=== PATIENT | male | born 1980 | race Caucasian/White ===

== ENCOUNTER 2016-07-07 08:07 | Inpatient (IN) | payer OTHER, MEDICARE ==
[~2016-07-07] VITALS: Ht 185.4 cm; Wt 83.9 kg
--- NOTE | 2016-07-07 08:24 | ED SYNCOPE COMPLAINT ---
History of Present Illness General Chief Complaint: General Adult Stated Complaint: BACK, HEAD PAIN X COUPLE WEEKS, SYNCOPE LAST PM Source: patient, EMS Exam Limitations: no limitations Vital Signs & Intake/Output Vital Signs & Intake/Output Vital Signs Date Time Temp Pulse Resp B/P Pulse O2 O2 Flow FiO2 Ox Delivery Rate 07/07 1559 99 Room Air 07/07 1025 98.4 74 18 120/70 100 Room Air 07/07 0859 62 121/74 07/07 0813 98.0 69 20 106/72 96 Room Air Allergies Coded Allergies: risperidone (From RISPERDAL) (Intermediate, LOCKED JAW AND TIGHT NECK 07/07/16) Reconcile Medications Bupropion HCl 75 MG TABLET 1 TAB PO TID MENTAL HEALTH (Reported) Diazepam 10 MG TABLET 1 TAB PO DAILY ANXIETY (Reported) Triage Note: TRIAGEl: PT BIBA FROM HOME C/C BACK AND HEAD PAIN X COUPLE WEEKS AND REPORTS SYNCOPAL EPISODE LAST NIGHT. BLACKED OUT. WOKE UP THIS MORNING. I DON'T REALLY HAVE TOO MUCH RECOLLECTION OF YESTERDAY." DENIES ANY FALL OR INJURY YESTERDAY OR WITH ONSET OF PAIN A COUPLE WEEKS AGO. PAIN HAS BEEN CONSTANT. HAS TRIED MOTRIN, ADVIL AND ALEVE WITH NO REAL RELIEF. Triage Nurses Notes Reviewed? yes Timing: multiple episodes in last few weeks Precipitating Factors: none Loss of Consciousness: prolonged (minutes) HPI: 35 year old male with history of chronic neck pain who presents via EMS from home for chief complaint of blacking out last night around 8 pm and states he didn't wake up until this morning. Patient denies that he was sleeping. Reports back and neck pain for the past few weeks. He has been sleeping on the couch at his parent's house. He states he has had multiple episodes of passing out tonight. He states that he just lies down and blacked out and does remember what happens. Occasionally feels some tightness in his chest. He states he's been sleeping on the couch his parents house. He is not hot to the but knows that they're both sick and undergoing cancer treatments. Denies feeling depressed. He is on antidepressants by his primary care doctor. He states he didn't call his doctor to tell them what was going on because he is explained to them in the past before. Past History Travel History Traveled to [place] past 21 day No Medical History Any Pertinent Medical History? 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 No Review of Systems Review of Systems Constitutional: Reports: unexplained weight loss. EENTM: Reports: no symptoms. Respiratory: Denies: cough, short of breath, sputum production. Cardiovascular: Reports: palpitations. GI: Denies: abdominal pain. Genitourinary: Denies: discharge, dysuria. Musculoskeletal: Reports: no symptoms. Skin: Reports: no symptoms. Neurological/Psychological: Reports: tingling. Denies: ataxia, numbness. All Other Systems: Reviewed and Negative Physical Exam Physical Exam General Appearance: well developed/nourished, alert, awake, mild distress Head: atraumatic, normal appearance Eyes: Bilateral: PERRL, EOMI. Ears, Nose, Throat: normal pharynx, normal ENT inspection, hearing grossly normal Neck: normal inspection, supple, full range of motion Respiratory: normal breath sounds, chest non-tender, no respiratory distress Cardiovascular: regular rate/rhythm Gastrointestinal: soft, non-tender Extremities: normal range of motion, no edema Psychiatric: awake, alert, oriented x 3 Cranial Nerves: normal hearing, normal speech, PERRL Coordination/Gait: normal gait Motor/Sensory: no motor/sensory deficits Core Measures ACS in differential dx? No CVA/TIA Diagnosis: No Severe Sepsis Present: No Septic Shock Present: No Progress Differential Diagnosis: depression, anxiety, bipolar disorder, schizophrenia, schizoaffective disorder Plan of Care: Orders Procedure Date/time Status Regular Diet 07/07 D Active Admit to inpatient 07/07 1616 Active Lab Add-on Test 07/07 1552 Active Patient Data - inpatient psych 07/07 1551 Active Admit to inpatient psych 07/07 1551 Active Continuous Observation Monitor 07/07 1008 Active ED CRISIS PSYCH CONSULT 07/07 1008 Active TSH REFLEX 07/07 0908 Complete Intake & Output 07/07 0901 Active MISTAKE 07/07 0847 Active URINE DRUGS OF ABUSE 07/07 0847 Complete URINALYSIS 07/07 0847 Complete COMPREHENSIVE METABOLIC PANEL 07/07 0847 Complete CBC WITHOUT DIFFERENTIAL 07/07 846 Complete EKG 07/07 08 Active Vital Signs 07/07 UNK Active Nursing Misc 07/07 UNK Active Alternative Nursing Therapy 07/07 UNK Active Activity/Ambulation 07/07 UNK Active Current Medications Sig/Miranda Start time Last Medication Dose Stop Time Status Admin Diazepam 5 MG BID 07/07 2200 AC (Valium) Olanzapine 10 MG AT BEDTIME 07/07 2200 AC (Zyprexa) Acetaminophen 650 MG Q6P PRN 07/07 1600 AC (Tylenol) Al Hydroxide/Mg 30 ML Q4-6 PRN PRN 07/07 1600 AC Hydroxide (Maalox Plus) Gabapentin 300 MG Q6P PRN 07/07 1600 AC (Neurontin) Magnesium Hydroxide 30 ML AT BEDTIME PRN 07/07 1600 AC (Milk Of Magnesia) Nicotine 2 MG Q2P PRN 07/07 1600 AC (Nicotine) Trazodone HCl 50 MG AT BEDTIME NEED.. 07/07 1600 AC (Desyrel) Laboratory Tests 07/07/16 1041: Urine Opiates Screen < 100.00, Methadone Screen < 40, Barbiturate Screen < 60, Ur Phencyclidine Scrn < 6.00, Amphetamines Screen < 100, U Benzodiazepines Scrn > 800 H, Urine Cocaine Screen < 50, Urine Cannabis Screen < 5.00, Urine Color YEL, Urine Clarity CLEAR, Urine pH 6.0, Ur Specific [place] 1.025, Urine Protein NEG, Urine Ketones NEG, Urine Nitrite NEG, Urine Bilirubin NEG, Urine Urobilinogen 0.2, Ur Leukocyte Esterase NEG, Ur Microscopic EXAM NOT REQUIRED, Urine Hemoglobin NEG, Urine Glucose NEG 07/07/16 0908: Anion Gap 11, Estimated GFR > 60, BUN/Creatinine Ratio 14.0, Glucose 85, Calcium 9.5, Total Bilirubin 0.8, AST 17, ALT 31, Alkaline Phosphatase 53, Total Protein 6.9, Albumin 4.4, Globulin 2.5, Albumin/Globulin Ratio 1.8, TSH &T3 &Free T4 Intrp 1.470, CBC w Diff NO MAN DIFF REQ, RBC 5.18, MCV 87.9, MCH 29.4, RDW 13.7, MPV 9.4, Gran % 69.0, Lymphocytes % 23.5, Monocytes % 5.8, Eosinophils % 1.4, Basophils % 0.3, Absolute Granulocytes 4.8, Absolute Lymphocytes 1.6, Absolute Monocytes 0.4, Absolute Eosinophils 0.1, Absolute Basophils 0, PUBS MCHC 33.5 Initial ED EKG: SINUS @ 56, EARLY REPOL PATTERN Prior EKG: unchanged Departure Departure Time of Disposition: 161 Disposition: STILL A PATIENT Condition: Stable Clinical Impression Primary Impression: Schizoaffective disorder Referrals: SANJANA REDMOND,ANGEL LUIS Uribe (PCP/Family) Departure Forms: Customer Survey General Discharge Information Psych Admission Note Psychiatric Admission: I have seen and evaluated JOSÉ MIGUEL NORWOOD. I have also reviewed all the pertinent lab results and diagnostic results. JOSÉ MIGUEL NORWOOD will be admitted to our inpatient Psychiatric unit for treatment and care.
[2016-07-07 09:18] LABS: ABSOLUTE BASOPHIL COUNT 0 /CUMM (0.0-0.2); ABSOLUTE EOSINOPHIL COUNT 0.1 /CUMM (0.0-0.7); ABSOLUTE GRANULOCYTE CT 4.8 /CUMM (1.4-6.5); ABSOLUTE LYMPH COUNT 1.6 /CUMM (1.2-3.4); ABSOLUTE MONOCYTE COUNT 0.4 /CUMM (0.10-0.60); BASOPHIL % 0.3 % (0.0-2.0); EOSINOPHIL % 1.4 % (0-5); HEMATOCRIT 45.5 % (42-52); MEAN CORPUSCULAR HGB 29.4 PG (27.0-31.0); MEAN CORPUSCULAR HGB CONC 33.5 G/DL (33.0-37.0); MEAN CORPUSCULAR VOLUME 87.9 FL (80.0-94.0); MEAN PLATELET VOLUME 9.4 FL (7.4-10.4); PLATELET COUNT 148 /CUMM (130-400); RBC DISTRIBUTION WIDTH 13.7 % (11.5-14.5); RED BLOOD CELL CT 5.18 /CUMM (4.70-6.10); WHITE BLOOD CELL COUNT 6.9 /CUMM (4.8-10.8)
[2016-07-07] MEDS ORDERED: DIAZEPAM10 M1 PO (12:30)
[2016-07-07] MEDS ORDERED: BUPROPION HCL75 M1 PO (12:30)
--- NOTE | 2016-07-07 15:40 | ED PSYCH CRISIS CONSULTATION ---
Crisis Consult Basic Assessment Date of Consult: 07/07/16 Responsible Person/Accompanied By: Father conservator Insurance Authorization: Insurance #1: Insurance name: MEDICARE A Phone number: Policy number: [id number] Group number: Authorization number: ED Provider: Patient's ED Provider: ANDRIA MONTANA MD Primary Care Physician: Patient's PCP: SANJANA REDMOND,ANGEL LUIS Uribe PCP's Current Psychiatrist: none Chief Complaint: Psychiatric Related Complaint Patient's Quote: "Those people are eating away at my brain behind my eyes." Present Illness: Pt is a 35yo male who presents to the ED complaining of head and neck pain. Pt was medically cleared and as staff was speaking with him it became more clear pt was exhibiting sx of psychosis. Upon crisis eval pt presents as anxious hyperverbal with pressured disorganized nonsensical speech. He was not able to answer this clinicians questions as he was perseverating on "the pain in my head that is eating away at my brain behind my eyes that those people are causing, and I can hear their voices in the air around me. I put so much out and get nothing back. I need help for the blood on my brain. This disease in my head. No one will help me. They steal things and some are in nursing home now. I think the police need to help, but they don't care." Crisis spoke with Pt's father Fercho Hernández . He explains that pt has a dx of Schizoaffective disorder and that he is pt's conservator. Pt has a hx of at least 10 or more inpt psych admits mostly at [facility]. Pt has not been hospitalized in about 2 years. He used to see a psychiatrist in [place] Dr. Loja, but pt was not compliant and has not been in any out pt tx for over 1 year. Father reports that pt will isolate in his room and argue with people who are not there and become agitated. Pt barely sleeps and barely eats. He has become very thin. Father reports that pt told him yesterday that he wants to . The other day pt became so agitated that he told his father that he wishes that he would . Father additionally reports that their family has been going through many recent stressors. Ther other son recently committed suicide by overdose this past October, father has been under chemo for prostate cancer and Mom is under treatment for bladder cancer. Father expresses that 'Fercho's condition has become unmanageable at out home because of his continuous visual, audio, and smell hallucinations which have him yelling aloud at the top of his lungs and his and our safety is a concern." Father advocated for him to be psychiatrically hospitalized. Case reviewed with Dr. Lutz of Psychiatry and pt will be admitted to [facility]. When this clinician informed pt that he was being admitted pt raised his voice and expressed "I don' t agree. No inpatient program is going to take care of the blood on my brain." Pt was placed on a PEC. Patient's Address: [address] [place] [address] Other Phone Number: Who Do You Live With? Father Family/Informants Interviewed: father conservator Allergies - Coded Allergies: risperidone (From RISPERDAL) (Intermediate, LOCKED JAW AND TIGHT NECK 07/07/16) Current Medications - Scheduled Medications Bupropion HCl 75 MG TABLET 1 TAB PO TID MENTAL HEALTH #90 (Reported) Entered as Reported by GABRIELLA GR on 07/07/16 1230 Diazepam 10 MG TABLET 1 TAB PO DAILY ANXIETY #30 (Reported) Entered as Reported by GABRIELLA GR on 07/07/16 1230 Laboratory Results: Laboratory Tests 07/07/16 1041: Urine Opiates Screen < 100.00, Methadone Screen < 40, Barbiturate Screen < 60, Ur Phencyclidine Scrn < 6.00, Amphetamines Screen < 100, U Benzodiazepines Scrn > 800 H, Urine Cocaine Screen < 50, Urine Cannabis Screen < 5.00, Urine Color YEL, Urine Clarity CLEAR, Urine pH 6.0, Ur Specific [place] 1.025, Urine Protein NEG, Urine Ketones NEG, Urine Nitrite NEG, Urine Bilirubin NEG, Urine Urobilinogen 0.2, Ur Leukocyte Esterase NEG, Ur Microscopic EXAM NOT REQUIRED, Urine Hemoglobin NEG, Urine Glucose NEG 07/07/16 0908: Anion Gap 11, Estimated GFR > 60, BUN/Creatinine Ratio 14.0, Glucose 85, Calcium 9.5, Total Bilirubin 0.8, AST 17, ALT 31, Alkaline Phosphatase 53, Total Protein 6.9, Albumin 4.4, Globulin 2.5, Albumin/Globulin Ratio 1.8, TSH &T3 &Free T4 Intrp Pending, CBC w Diff NO MAN DIFF REQ, RBC 5.18, MCV 87.9, MCH 29.4, RDW 13.7, MPV 9.4, Gran % 69.0, Lymphocytes % 23.5, Monocytes % 5.8, Eosinophils % 1.4, Basophils % 0.3, Absolute Granulocytes 4.8, Absolute Lymphocytes 1.6, Absolute Monocytes 0.4, Absolute Eosinophils 0.1, Absolute Basophils 0, PUBS MCHC 33.5 Past History Past Medical History Neurological: NONE EENT: NONE Cardiovascular: NONE Respiratory: NONE Gastrointestinal: NONE Hepatic: NONE Renal: NONE Musculoskeletal: NONE Psychiatric: schizophrenia Endocrine: NONE Blood Disorders: NONE Cancer(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 Past Surgical History Surgical History: NECK INJECTIONS Psychosocial History Strengths/Capabilities: supportive family Physical Limitations (Interventions): chronic pain Psychiatric Treatment History Psych Treatment Psychiatric Treatment Yes Inpatient Treatment Yes Outpatient Treatment Yes Location of Treatment [place] Reason for Treatment schizoaffective Dates of Treatment multiple Response to Treatment noncompliant Diagnosis by History: schizoaffective Substance Use/Abuse History Drug Use/Abuse Substances Used/Abused No Substance Abuse Treatment Substance Abuse Treatment Past Substance Abuse [place] No Current Mental Status Mental Status Orientation: Person, Place, Situation Affect: Anxious, Angry, Depressed, Hopeless, Labile, Sad, Variable Speech: Evasive, Hyper-verbal, Loud, Perseveration, Pressured Neuro-vegetative: Appetite Decreased, Concentration Poor, Energy Decreased, Energy Increased, Helpless, Hyperactivity, Loss of Interest, Sleep Disturbance Appearance Appearance- Dress/Hygiene: farily groomed, good eye contact Behaviors Thought Process: Disorganized, Flight of Ideas, Irrational, Loose Association, Tangential Thought Content: Auditory Hallucinations, Delusions, Obsessions, Paranoid, Visual Hallucinations Memory: Impaired Insight: Poor SI/HI Risk Assessment Past Suicidal Ideation/Attempts No Current Suicidal Ideation/Att No Past Homicidal Ideation/Att: No Current Homicidal Ideation/Attempts No Degree of Intent: None Danger To: Others, Self Gravely Disabled: Inability, Lack of Insight Risk Factors: high anxiety/distress, SA/MH hospitalized, isolate/no social support, male, limited support Lethality Ratin PTSD Checklist PTSD Done? pt unable to participate ED Management Sitter: Yes Restraints: No DSM5/PS Stressors/Medical Prob Diagnosis' (DSM 5, Stressors, Medical): Schizoaffective F25.9 Current GAF: 18 Departure Disposition Psych Medical Clearance Date: 07/07/16 Medically Cleared at: 1500 Time Started: 1500 Time Ended: 1530 Psychiatrist Consulted: Robi Lutz MD Date Disposition Established: 07/07/16 Time Disposition Established: 1529 Plan for Disposition - Modality: Inpatient Psychiatry Facility: [facility] Rationale for Disposition: safety and stabilization Type of IP Admission: PEC Referrals SANJANA REDMOND,ANGEL LUIS Uribe (PCP/Family)
--- NOTE | 2016-07-07 17:15 | IP CRISIS DIAG ASSESS PSYCH ---
Diagnostic Assessment Basic Assessment Insurance Authorization: Insurance #1: Insurance name: MEDICARE A Phone number: Policy number: [id number] Group number: Authorization number: Patricia Spoke with Marielle at [facility] who informed that pt's purviky is not active Primary Care Physician: Patient's PCP: ANGEL LUIS ALLAN MD PCP's Patient's Quote: "Those people are eating away at my brain behind my eyes." Present Illness: Pt is a 35yo male who presents to the ED complaining of head and neck pain. Pt was medically cleared and as staff was speaking with him it became more clear pt was exhibiting sx of psychosis. Upon crisis eval pt presents as anxious hyperverbal with pressured disorganized nonsensical speech. He was not able to answer this clinicians questions as he was perseverating on "the pain in my head that is eating away at my brain behind my eyes that those people are causing, and I can hear their voices in the air around me. I put so much out and get nothing back. I need help for the blood on my brain. This disease in my head. No one will help me. They steal things and some are in fpc now. I think the police need to help, but they don't care." Crisis spoke with Pt's father Fercho Hernández . He explains that pt has a dx of Schizoaffective disorder and that he is pt's conservator. Pt has a hx of at least 10 or more inpt psych admits mostly at [facility]. Pt has not been hospitalized in about 2 years. He used to see a psychiatrist in [place] Dr. Loja, but pt was not compliant and has not been in any out pt tx for over 1 year. Father reports that pt will isolate in his room and argue with people who are not there and become agitated. Pt barely sleeps and barely eats. He has become very thin. Father reports that pt told him yesterday that he wants to . The other day pt became so agitated that he told his father that he wishes that he would . Father additionally reports that their family has been going through many recent stressors. Ther other son recently committed suicide by overdose this past October, father has been under chemo for prostate cancer and Mom is under treatment for bladder cancer. Father expresses that 'Fercho's condition has become unmanageable at out home because of his continuous visual, audio, and smell hallucinations which have him yelling aloud at the top of his lungs and his and our safety is a concern." Father advocated for him to be psychiatrically hospitalized. Case reviewed with Dr. Lutz of Psychiatry and pt will be admitted to [facility]. When this clinician informed pt that he was being admitted pt raised his voice and expressed "I don' t agree. No inpatient program is going to take care of the blood on my brain." Pt was placed on a PEC. Patient's Address: [address] [place] [address] Other Phone Number: Who Do You Live With? Father Feel Safe Where You Live? No Feel Safe in Your Relationship No If No, Please Elaborate: pt thinks people are eating away at his brain Marital Status: single Do You Have Children? No Primary Language? [place] Language(s) Spoken At Home: [place] Family/Informants Interviewed: father conservator Allergies - Coded Allergies: risperidone (From RISPERDAL) (Intermediate, LOCKED JAW AND TIGHT NECK 07/07/16) Current Medications - Scheduled Medications Bupropion HCl 75 MG TABLET 1 TAB PO TID MENTAL HEALTH #90 (Reported) Entered as Reported by GABRIELLA GR on 07/07/16 1230 Diazepam 10 MG TABLET 1 TAB PO DAILY ANXIETY #30 (Reported) Entered as Reported by GABRIELLA GR on 07/07/16 1230 Lab Results: Laboratory Tests 07/07/16 1041: Urine Opiates Screen < 100.00, Methadone Screen < 40, Barbiturate Screen < 60, Ur Phencyclidine Scrn < 6.00, Amphetamines Screen < 100, U Benzodiazepines Scrn > 800 H, Urine Cocaine Screen < 50, Urine Cannabis Screen < 5.00, Urine Color YEL, Urine Clarity CLEAR, Urine pH 6.0, Ur Specific [place] 1.025, Urine Protein NEG, Urine Ketones NEG, Urine Nitrite NEG, Urine Bilirubin NEG, Urine Urobilinogen 0.2, Ur Leukocyte Esterase NEG, Ur Microscopic EXAM NOT REQUIRED, Urine Hemoglobin NEG, Urine Glucose NEG 07/07/16 0908: Anion Gap 11, Estimated GFR > 60, BUN/Creatinine Ratio 14.0, Glucose 85, Calcium 9.5, Total Bilirubin 0.8, AST 17, ALT 31, Alkaline Phosphatase 53, Total Protein 6.9, Albumin 4.4, Globulin 2.5, Albumin/Globulin Ratio 1.8, TSH &T3 &Free T4 Intrp 1.470, CBC w Diff NO MAN DIFF REQ, RBC 5.18, MCV 87.9, MCH 29.4, RDW 13.7, MPV 9.4, Gran % 69.0, Lymphocytes % 23.5, Monocytes % 5.8, Eosinophils % 1.4, Basophils % 0.3, Absolute Granulocytes 4.8, Absolute Lymphocytes 1.6, Absolute Monocytes 0.4, Absolute Eosinophils 0.1, Absolute Basophils 0, PUBS MCHC 33.5 Toxicology Screen Completed? Yes Results: positive Past History Past Surgical History Surgical History non-contributory Abuse/Trauma History Trauma History/Current Trauma: pt not able to answer due to psychosis Psychosocial History Strengths/Capabilities: supportive family Physical Limitations (Interventions): chronic pain Psychiatric Treatment History Psych Treatment Psychiatric Treatment Yes Inpatient Treatment Yes Outpatient Treatment Yes Location of Treatment [place] Reason for Treatment schizoaffective Dates of Treatment multiple Response to Treatment noncompliant Diagnosis by History: schizoaffective Risk Factors: high anxiety/distress, SA/MH hospitalized, isolate/no social support, male, limited support Substance Use/Abuse History Drug Use/Abuse minimum 12mo Hx Substances Used/Abused No Substance Abuse Treatment Substance Abuse Treatment Past Substance Abuse [place] No Current Mental Status Mental Status Orientation: Person, Place, Situation Affect: Anxious, Angry, Depressed, Hopeless, Labile, Sad, Variable Speech: Evasive, Hyper-verbal, Loud, Perseveration, Pressured Neuro-vegetative: Appetite Decreased, Concentration Poor, Energy Decreased, Energy Increased, Helpless, Hyperactivity, Loss of Interest, Sleep Disturbance Appearance Appearance- Dress/Hygiene: farily groomed, good eye contact Behaviors Thought Process: Disorganized, Flight of Ideas, Irrational, Loose Association, Tangential Thought Content: Auditory Hallucinations, Delusions, Obsessions, Paranoid, Visual Hallucinations Memory: Impaired Insight: Poor SI/HI Risk Assessment - Minimum 6mo History- Past Suicidal Ideation/Attempts No Current Suicidal Ideation/Att No Past Homicidal Ideation/Att: No Current Homicidal Ideation/Attempts No Degree of Intent: None Danger To: Others, Self Gravely Disabled: Inability, Lack of Insight Risk Factors: high anxiety/distress, SA/MH hospitalized, isolate/no social support, male, limited support Lethality Ratin Needs/Init [place] Plan/Goals: safety and stabilization of sx, individual group and family therapy, med eval AUDIT-C Questionnaire: AUDIT-C Questionnaire: Response Value ETOH use in the past year Never 0 # drinks typical/day Doesn't Drink 0 6 or > drinks per occasion Never 0 Total 0 DSM5/PS Stressors/Medical Prob Diagnosis' (DSM 5, Stressors, Medical): Schizoaffective F25.9 Current GAF: 18
--- NOTE | 2016-07-07 17:15 | SOCIAL WORKER PROG NOTE PSYCH ---
Social Work Progress Note Progress Note Unable to complete social history with pt due to pt's current psychiatric presentation of anxiousness, hyperverbal with pressured disorganized nonsensical speech. He was not able to answer this clinicians questions as he was perseverating on "the pain in my head that is eating away at my brain behind my eyes that those people are causing, and I can hear their voices in the air around me. I put so much out and get nothing back. I need help for the blood on my brain. This disease in my head. No one will help me. They steal things and some are in retirement now. I think the police need to help, but they don't care."
[2016-07-08 08:10] VITALS: BP 131/68
[2016-07-08 12:28] VITALS: BP 133/71
--- NOTE | 2016-07-08 14:38 | CPS MD/APRN INITIAL ASSE PSYCH ---
Psychiatric Admission Blend Plant Operator's Note Reviewed: Yes Patient Seen and Examined: Yes Identifying Information: Pt is a 35yo male who presents to the ED complaining of head and neck pain. Chief Complaint: "I'm feeling mentally anguished." Reaction to Hospitalization: Calm and cooperative during our interview. History of Present Illness Onset of Illness: Chronic for many years. Circumstances Leading to Admission: Patient presented to the emergency department complaining of head and neck pain. Upon evaluation ER staff reported that he was exhibiting "symptoms of psychosis." Problem(s) Justifying Need for Admission: Disorganized thought process. Past Psychiatric History Past Diagnosis(es)- if any: Schizoaffective disorder. Schizophrenia. Past Precipitating Factors- if any: History of heroin and substance abuse. His brother overdosed and one year ago. Father has been in treatment for prostate cancer and his mother has been in chemotherapy for bladder cancer. - Include inpatient and outpatient treatment Treatment History: Pt has a hx of at least 10 or more inpt psych admits mostly at [facility]. Pt has not been hospitalized in about 2 years. History of Suicide Attempts or Gestures Denies Substance Abuse History: Heroin, cocaine, polysubstance abuse, alcohol. Had been on methadone maintenance. States he has been abstinent of substance abuse since 2010. Allergies: Coded Allergies: risperidone (From RISPERDAL) (Intermediate, LOCKED JAW AND TIGHT NECK 07/07/16) Home Med List: Diazepam, bupropion. 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 Substance Use: Patient states that his father has a history of alcohol abuse, as do many of his cousins. Suicides: Patient's brother overdosed and last year. Patient stated that he did not know if this was an intentional suicide, or accidental. Social History Living Situation: Lives with his mother and father. Significant Relationships (family/friends): Mother and father. Education: High school graduate. He graduated from technical college in architectural drafting. 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 Legal: Denies Healthly Behaviors Screening Tobacco Screening Tobacco Use from ED Docu: Current Daily Use Daily Tobacco Use Amount/Type: Smokeless tobacco daily - If tobacco counseling indicated - the following topics are required. - #1 Recognizing dangerous situations. - #2 Coping Skills. - #3 Basic information about quitting. Status of Tobacco Cessation Counseling: #1, #2 AND #3 Completed Cessation Med Status: Nicotine Gum Ordered Alcohol Screening - ETOH screen POS if BAL >=80 or Audit-C>= M4/F3 Audit-C Score from Diag Assess: 0 Blood Alcohol Level: Not obtained. Alcohol Use Screening Results: Neg per Audit C &/or BAL - If ETOH counseling indicated - the following topics are required. - #1 Express concern about the patient's - drinking at unhealthy levels, include informing - of national norms for moderate drinking: - men <= 14 drinks/week, max 4 drinks/occasion - women <= 7 drinks/week, max 3 drinks/occasion - #2 Providing feedback, including linking alcohol to - negative physical effects (liver injury, hypertension) - negative emotional effects (relationship problems and - depression) - negative occupational consequences (reduced work - performance) - #3 Advising the patient to abstain from alcohol or - to drink below national norms for moderate drinking - (as listed above). Status of ETOH Use Counseling: N/A B/C NO ETOH Use Metabolic Screening - Screen if on a Neuroleptic Medication - Metabolic screening should include: - Blood Pressure, BMI, Glucose or Hgb A1c, & a - Lipid profile from within the past 365 days. Metabolic Screening () Not Applicable, patient not on a neuroleptic. OR ([x]) Patient on a neuroleptic(s) . Enter below results for Glucose or Hemoglobin A1C, and lipid panel if obtained during the last 365 days. BMI: 24.400 Blood Pressure: 122/74 Laboratory Results (If applicable): Labs ordered and pending. Exam and Plan Mental Status Examination Ambulation Status: Ambulates independently with steady gait. Appearance: Appropriately groomed and dressed, hospital paper scrub pants. Attitude towards examiner: Calm and cooperative. Psychomotor activity: Within normal limits. Behavior: Calm and cooperative. Quality of speech: Speech is well articulated, average in rate, and volume. Somewhat flat in tone. At times goal directed, and at times disorganized. Affect: Somewhat flat. Mood: Flat. Suicidal Ideation: Denies Homicidal Ideation: Denies Hallucinations: Patient denies visual hallucinations. When asked about auditory hallucinations he answered "not really. I have my thoughts. It's complicated." When asked about olfactory hallucinations patient states that he sometimes senses the smell of rubber, "sometimes I remember the smell from garbage I took out a month ago." Paranoid/Delusional Material: Denies Difficulties with thought organization: At times patient speaks in a goal-directed manner, at times his answers are disorganized and tangential. Insight: Poor Judgment: Poor Orientation: Alert and oriented to person, place and time. Cognition: Within normal limits Memory Function: Within normal limits, but not tested. Estimate of intellectual functioning: Average Assets/Strengths Patient Identified Assets/Strengths: "I don't know." Impression/Plan Impression and Plan: 35-year-old male, who presents with disorganized and tangential thoughts. Possible auditory hallucinations, possible olfactory hallucinations. He is amenable to taking Zyprexa. Patient is conserved by his father. - Include all active medical diagnosis that require tx DSM 5 Diagnosis(es): Schizoaffective versus schizophrenia. - Initial Tx Plan for Active Psych & Medical Conditions Treatment Plan: PLAN: The patient will be monitored on the unit for safety, auditory hallucinations, olfactory hallucinations, disorganized and tangential thoughts. Additional information is needed from collaterals, including his father who is also his conservator. Anticipate once clinically stable, that the patient will be discharged to home and family and be referred to [facility]. - Factors that would help patient function - in a less restrictive setting. Factors: The ability to think in a clear manner, and make safe choices.
--- NOTE | 2016-07-08 15:24 | SOCIAL WORKER PROG NOTE PSYCH ---
Social Work Progress Note Progress Note SW met with patient for the first time today. Patient presented as disorganized and tangential, unable to complete a full sentence. Patient was unable to identify why he was currently in the hospital and complained strictly of medical concerns such as pain in his head. It appears patient is experiencing AH but was unable to identify if they are command in nature. Patient reported a hx of substance use including heroin and cocaine use and being on methadone in the past. He reports recreational alcohol use at present, mru on . Patient reports that he resides with his parents and does not find this environment supportive. Patient spoke poorly of his relationship with his parents. He had a difficult time confirming whether or not his father is his conservator and shared that he does not want contact with his father at this time. I left voicemail for his father requesting call back to receive conservator paperwork and to arrange a family meeting with myself and Omar Jaffe APRN. Patient is aware that I was calling his father to arrange this.
--- NOTE | 2016-07-08 15:30 | SOCIAL WORKER TX PLAN PSYCH ---
Treatment Plan - Please Document: - Evidence that there is ongoing collaboration between - the patient and the interdisciplinary team, - including the patient's active participation and - responsibility for engaging in the treatment regimen, - and that the treatment plan is individualized and - relevant to the patient's conditions. - Treatment plan should reflect documentation indicating - that all active therapeutic efforts are included. Strengths/Capabilities: supportive family Physical Limitations (Interventions): chronic pain Patient Identified Trmt Goals: " I don't think I need help. " Discharge Plan: IOP Problem/Goals #1 Problem #1: psychosis Goal (Short Term): Goal (Custodial): Interventions: Learn ways to manage medications accordingly and identify positive supports to manage unusual symptoms that may occur. Modalities: Encourage groups, education on depression, provide CBT treatment, family meeting. DSM5/PS Stressors/Medical Prob Diagnosis' (DSM 5, Stressors, Medical): Schizoaffective F25.9 Current GAF: 18 Treatment Team - Responsibilities of members of the treatment team include: - Medication Management- MD or LINEN ATTENDANT - Medication Administration and Monitoring- Nurse - Group Therapy- Occupational Therapist - 1:1 Therapy,Disch Planning,family involvement-Banquet Waiter/Waitress
--- NOTE | 2016-07-08 15:43 | SOCIAL WORKER SOCIAL HX PSYCH ---
Social History Basic Assessment Primary Language? [place] Citizen Language(s) Spoken At Home: [place] Citizen Living Situation Other Living Arrangement: relative's/guardian's toney Feel Safe Where You Are Living No Feel Safe in Relationships? No Allergies - Coded Allergies: risperidone (From RISPERDAL) (Intermediate, LOCKED JAW AND TIGHT NECK 07/07/16) Current Medications - Scheduled Medications Bupropion HCl 75 MG TABLET 1 TAB PO TID MENTAL HEALTH #90 (Reported) Entered as Reported by GABRIELLA GR on 07/07/16 1230 Diazepam 10 MG TABLET 1 TAB PO DAILY ANXIETY #30 (Reported) Entered as Reported by GABRIELLA GR on 07/07/16 1230 Past History Past Medical History Neurological: NONE EENT: NONE Cardiovascular: NONE Respiratory: NONE Gastrointestinal: NONE Hepatic: NONE Renal: NONE Musculoskeletal: NONE Psychiatric: schizophrenia Endocrine: NONE Blood Disorders: NONE Cancer(s): NONE 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 No Relationship w/Mother: "Ok" Relationship w/Father: "not good" Any Sibling(s)? Yes Sibling's Gender(s)/Age(s): male Sibling 1:, female Sibling 2: Relationship w/Sibling(s): Unknown Relationship w/Friends: None reported Abuse/Trauma History Trauma History/Current Trauma: pt not able to answer due to psychosis Legal History Current Legal Status: none Pending Court Dates: none reported Have you ever been arrested Yes Number of Arrests: 1 Hx of Juvenile Legal Charges? No Hx of Adult Legal Charges? No Psychosocial History Strengths/Capabilities: supportive/ concened family. Physical Limitations (Interventions): chronic pain History of Seizures? No History of Blackouts? No [place]/Social/Peer Relations none reported Meaningful Activities: none identified Childhood Shinto: no zoroastrian stated Current Latter-Day Affiliation: no zoroastrian stated Is Spirituality Important to You? no Psychiatric Treatment History Psych Treatment Inpatient Treatment Yes Outpatient Treatment Yes Location of Treatment [place] Reason for Treatment schizoaffective Dates of Treatment multiple Response to Treatment noncompliant Diagnosis: schizoaffective Risk Factors: high anxiety/distress, SA/MH hospitalized, isolate/no social support, male, limited support Substance Use/Abuse History Drug Use/Abuse Substance Used/Abused Heroin First Use unknown Last Used 2010 How much used/taken unknown How often daily For how long 3-4 years Route of use inhalation Have Had Periods of Sobriety? Yes Relapse History? No Have You Ever Attended AA? Yes Do You Attend AA Currently? No Do You Have a Sponsor? No Substance Abuse Treatment Substance Abuse Treatment Inpatient Treatment Yes Outpatient Treatment Yes Location of Treatment unknown Reason for Treatment psychosis Sexual History Sexually Active No Education History Highest Level of Education: high school/GED Highest Grade Completed: 12th College Degree/Major: n/a Preferred Learning Style: visual, auditory, experiential HX of Learning Difficulties: None reported Barriers to Learning: None reported Employment History Employment Unemployed History Have You Been in The ? No Current Mental Status Mental Status Orientation: Person, Place, Situation Affect: Anxious, Angry, Depressed, Hopeless, Labile, Sad, Variable Speech: Evasive, Hyper-verbal, Loud, Perseveration, Pressured Neuro-vegetative: Appetite Decreased, Concentration Poor, Energy Decreased, Energy Increased, Helpless, Hyperactivity, Loss of Interest, Sleep Disturbance Appearance Appearance- Dress/Hygiene: farily groomed, good eye contact Behaviors Thought Process: Disorganized, Flight of Ideas, Irrational, Loose Association, Tangential Thought Content: Auditory Hallucinations, Delusions, Obsessions, Paranoid, Visual Hallucinations Memory: Impaired Insight: Poor SI/HI Risk Assessment Past Suicidal Ideation/Attempts No Current Suicidal Ideation/Att No Past Homicidal Ideation/Att: No Current Homicidal Ideation/Attempts No Degree of Intent: None Danger To: Others, Self Gravely Disabled: Inability, Lack of Insight Lethality Ratin - Conclusion and Recommendations for treatment - and discharge planning
[2016-07-08 15:56] VITALS: BP 122/74
--- NOTE | 2016-07-08 19:11 | History & Physical ---
General Information and HPI History of Present Illness: This young male was admitted to psychiatry because of psychosis. He has had multiple psychiatric admissions in the past in different hospitals probably is not taking his medications.. He is not sure why he ended up in the hospital and thinks that he was passed out but did not remember anything and was sitting in the hallway for a whole day where he lives and then called his partner and he was brought to the hospital in an ambulance. He cannot give any coherent history about coming to the hospital for any particular reason. He claims he has long-standing neck pain and back pain and has had treatment for a long time and denies any specific surgery or ongoing medical illnesses. He claims his parents are alive but were cancers and they're getting chemotherapy. He claims his younger brother overdosed and recently. The patient is on disability and is not employed at this time due to his psychiatric illness. 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 Home ETOH Use: occasional use Illicit Drug Use: denies illicit drug use Review of Systems Review of Systems Constitutional: Reports: see HPI. EENTM: Denies: no symptoms. Cardiovascular: Denies: no symptoms. Respiratory: Denies: no symptoms. GI: Denies: no symptoms. Genitourinary: Reports: frequency (claims he urinates very often ). Musculoskeletal: Reports: back pain, joint pain, neck pain. Skin: Denies: no symptoms. Neurological/Psychological: Reports: see HPI, confusion, emotional problems. Hematologic/Endocrine: Denies: no symptoms. All Other Systems: Reviewed and Negative Exam & Diagnostic Data Last 24 Hrs of Vital Signs/I&O Vital Signs Date Time Temp Pulse Resp B/P Pulse O2 O2 Flow FiO2 Ox Delivery Rate 07/08 1556 86 122/74 07/08 1228 94 133/71 07/08 0810 96.0 77 131/68 07/07 2309 97.1 66 16 125/66 91 Room Air 07/07 1958 Room Air 07/07 1953 96.4 64 16 124/62 95 Room Air Intake & Output 07/08 1600 07/08 0800 07/08 0000 Intake Total Output Total Balance Patient 185 lb Weight Physical Exam General Appearance Alert, Cooperative, No Acute Distress Skin No Rashes, No Breakdown, No Significant Lesion HEENT Atraumatic, PERRLA, EOMI, Mucous Membr. moist/pink Neck Supple, No JVD, No thryomegaly, +2 Carotid Pulse wo Bruit, although he complains of pain in the neck for a long time but his range of motion is fairly good and it's nontender on palpation. Lymphatic Cervical nl Cardiovascular Regular Rate, Normal S1, Normal S2, No Murmurs, Gallops, Rubs Lungs Clear to Auscultation, Normal Air Movement Abdomen Normal Bowel Sounds, Soft, No Tenderness, No Hepatospenomegaly, No Masses Neurological Exam Findings: Normal Gait, Normal Speech, Strength at 5/5 X4 Ext, Normal Tone, Cranial Nerves 3-12 NL Cranial Nerves II through XII: Within normal limits and intact Extremities No Clubbing, No Cyanosis, No Edema, No Tenderness/Swelling Assessment/Plan Assessment: This young male was admitted for psychosis. He has had long-standing history of previous psychiatric illness and has been admitted in different hospitals multiple times past. There is no acute medical problem at this time. He claims to have neck pain problems but his range of motion is fairly good and does not require any specific treatment or workup at this time. His blood work including a CBC electrolytes liver functions are all within normal limits and there is no need for any other testing As Ranked By This Provider Problem List: 1. Chronic pain 2. Schizoaffective disorder Miscellaneous Miscellaneous Documentation Attending Case Discussed With: MINGO NO MD Primary Care Physician: ANGEL LUIS ALLAN MD Patient sees these Specialists none Level of Patient Care: SAMMY John Attending MD Review Statement Attending Statement Attending MD Statement: examined this patient, reviewed EMR data (avail), discussed with nursing Attending Assessment/Plan: This young male is admitted to psychiatry for schizoaffective disorder and psychosis and worsening mental status. There is no acute medical problem at this time and he will be treated per psychiatric recommendations.. There is no need for any workup or treatment from medical standpoint
[2016-07-09 07:38] VITALS: BP 108/57
[2016-07-09 12:33] VITALS: BP 118/68
--- NOTE | 2016-07-09 16:09 | SOCIAL WORKER PROG NOTE PSYCH ---
Social Work Progress Note Progress Note Patient appeared somewhat improved today. Patient continues to be responding to internal stimuli, has disorganized and racing thoughts when trying to explain himself. Patient appears at times to be experiencing thought blocking and has a difficult time expressing his thoughts clearly. Patient seen attending some groups today although mostly seen pacing the unit. I spoke with patients father today who has agreed to come in for a family meeting this Thursday at 10am. He reports that he brought in conservator paperwork to hospital when patient was in ED and paperwork is in his chart. He was in agreement with patient increasing Zyprexa dosage as well. He reported that he does not feel he can have patient return to his home when he discharges and this was relayed to patient as well. Patient has agreed to start seeking alternatives and call family/friends or else is willing to call 211 for a prison bed.
[2016-07-09 16:28] VITALS: BP 145/57
--- NOTE | 2016-07-09 18:45 | CP SOUTH PROGRESS NOTE PSYCH ---
Psych (Inpt) Progress Note Progress Note Progress Note: I discussed this patient's progress to date, current mental status, treatment process in the context of the treatment plan, and discharge planning with staff/ team in the daily morning inpatient team meeting. I also met with the patient myself in individual session. A total of 15 minutes was spent with the patient with more than 50% spent in counseling and/or coordination of care. SUBJECTIVE: "I don't feel bad. The olanzapine is good for tension and anxiety. " OBJECTIVE: Current Medications Sig/Miranda Start time Last Medication Dose Route Stop Time Status Admin Acetaminophen 650 MG Q6P PRN 07/07 1600 AC 07/09 PO 1428 Al Hydroxide/Mg 30 ML Q4-6 PRN PRN 07/07 1600 AC Hydroxide PO Diazepam 5 MG BID 07/07 2200 AC 07/09 PO 0740 Gabapentin 300 MG Q6P PRN 07/07 1600 AC PO Magnesium Hydroxide 30 ML AT BEDTIME PRN 07/07 1600 AC 07/08 PO 2004 Nicotine 2 MG Q2P PRN 07/07 1600 AC PO Olanzapine 10 MG 0800,0 07/09 2200 UNVr PO Olanzapine 5 MG Q6-PRN PRN 07/08 1800 DC 07/09 PO 1428 Olanzapine 10 MG AT BEDTIME 07/07 2200 DC 07/08 PO 2142 Trazodone HCl 50 MG AT BEDTIME NEED.. 07/07 1600 AC PO Laboratory Tests 07/09 07/09 0600 0600 Chemistry Hemoglobin A1c Pending Triglycerides (<150 mg/dL) 129 Cholesterol (< 200 MG/DL) 158 LDL Cholesterol, Calc (65 - 129 mg/dL) 92 HDL Cholesterol (40 - 60 mg/dL) 41 Cholesterol/HDL Ratio (0.00 - 4.88 %) 4 Vital Signs Date Time Temp Pulse Resp B/P Pulse O2 O2 Flow FiO2 Ox Delivery Rate 07/09 1628 87 145/57 07/09 1233 81 118/68 07/09 0738 95.8 74 108/57 ASSESSMENT: I met the patient today with social work case manager Ileana. He presented as cooperative. As per nursing report, he spends much of the day pacing around the unit. He is alert and oriented 3, however exhibits continuing thought disorganization. He was able to answer simple questions appropriately. When asked to describe his auditory and visual hallucinations he appeared to be trying to explain his sensations, however was unable to do so in a clear manner. When discussing his father, he becomes irritable. He understands that there is a good likelihood that he will not be able to return to live with his father. He has verbalized understanding and willingness to start contacting friends and family who may be able to put him up temporarily. He also understands that he may need to call [address] to find placement in a homeless residential. He reports tolerating his medications well, states that he feels better, less tense and anxious now that he is taking olanzapine. Depression:0/10; Anxiety:0/10 (with 10 the worst.) Denies suicidal ideation, homicidal ideation, paranoid ideation. He describes auditory hallucinations as follows "it's like extra telepathy. Like a different perspective. I just try to ignore it." In describing visual hallucination he says "it's like on TV, I might see something that other people wouldn't see." Speech is well articulated, average in rate, volume and tone. Poor insight. Reports sleeping well, having a good appetite. The patient understands the risks/benefits/side effects of the medication and is agreeable to continue taking them. PLAN: Olanzapine 10 mg twice daily. Anticipate family meeting with his father/ conservator on Thursday. Continue with other current management as patient is improving. Continue to provide support and encouragement.
[2016-07-09 19:42] VITALS: BP 139/68
[2016-07-10 07:50] VITALS: BP 139/65
--- NOTE | 2016-07-10 08:44 | CP SOUTH PROGRESS NOTE PSYCH ---
Psych (Inpt) Progress Note Progress Note Progress Note: I discussed this patient's progress to date, current mental status, treatment process in the context of the treatment plan, and discharge planning with staff/ team in the daily morning inpatient team meeting. I also met with the patient myself in individual session. A total of 15 minutes was spent with the patient with more than 50% spent in counseling and/or coordination of care. SUBJECTIVE: "The olanzapine is definitely working. My thoughts are more clear. I have a sense of well-being. I feel more situated." OBJECTIVE: Current Medications Sig/Miranda Start time Last Medication Dose Route Stop Time Status Admin Acetaminophen 650 MG .STK-MED ONE 07/09 1422 DC PO 07/09 142 Acetaminophen 650 MG Q6P PRN 07/07 1600 AC 07/10 PO 0158 Al Hydroxide/Mg 30 ML Q4-6 PRN PRN 07/07 1600 AC Hydroxide PO Diazepam 5 MG BID 07/07 2200 AC 07/09 PO 2117 Diphenhydramine HCl 25 MG AT BEDTIME PRN 07/10 0830 UNVr PO Gabapentin 300 MG Q6P PRN 07/07 1600 AC PO Magnesium Hydroxide 30 ML AT BEDTIME PRN 07/07 1600 AC 07/08 PO 2004 Nicotine 2 MG Q2P PRN 07/07 1600 AC PO Olanzapine 10 MG 0800,2200 07/09 2200 AC 07/09 PO 2117 Olanzapine 5 MG Q6-PRN PRN 07/08 1800 DC 07/09 PO 1428 Olanzapine 10 MG AT BEDTIME 07/07 2200 DC 07/08 PO 2142 Trazodone HCl 50 MG AT BEDTIME NEED.. 07/07 1600 DC 07/10 PO 0158 Vital Signs Date Time Temp Pulse Resp B/P Pulse O2 O2 Flow FiO2 Ox Delivery Rate 07/10 0750 97.8 76 139/65 07/09 1942 96.0 70 139/68 07/09 1628 87 145/57 07/09 1233 81 118/68 ASSESSMENT: Patient calm and cooperative this morning. Noted to be pacing around the hallways. According to nursing report, patient was up for a good portion of the night. Was given trazodone for sleep without apparently any effect. Patient also states that trazodone was not effective. He states that at home he finds Aleve P.M. to be helpful for sleep. Depression:0/10; Anxiety:0/10 (with 10 the worst.) Denies suicidal ideation, homicidal ideation, auditory hallucinations, visual hallucinations, paranoid ideation. Patient states that he does not have auditory or visual hallucinations. He states however that "I have a disconnect. I get stuck. It's difficult to explain." He states however, that this has started to improve since restarting olanzapine. Reports that his appetite is good. Although nursing reports that he spends much of his day walking the hallways, he states that he has been attending some groups. Speech is well articulated, goal-directed, average in rate, volume and tone. This morning his speech and thoughts appear more clear and organized than yesterday. The patient understands the risks/benefits/side effects of the medication and is agreeable to continue taking them. PLAN: Slow progress. Continue olanzapine. Benadryl at night for insomnia. Continue with other current management as patient is improving. Continue to provide support and encouragement.
[2016-07-10 12:24] VITALS: BP 141/63
--- NOTE | 2016-07-10 15:30 | SOCIAL WORKER PROG NOTE PSYCH ---
Social Work Progress Note Progress Note Patient continues to present with similar presentation and slight improvement. Patient seen pacing most of the morning but was able to attend some groups throughout the day. Patient reported that he was unable to identify any family member that he could reside with post discharge from the hospital. Patient mentioned his aunt briefly but stated that he did not know her phone number and did not want to contact his father for this information. Patient reports no contact with his father since admission and it does not appear patient has had contact with anyone on the outside. Patient reported that he will go to a skilled nursing if he has to when he leaves the hospital. This will be further discussed in tomorrows family meeting. He denies SI/HI at present and does continue to be responding to internal stimuli.
[2016-07-10 16:18] VITALS: BP 107/59
[2016-07-10 20:12] VITALS: BP 130/69
[2016-07-11 08:03] VITALS: BP 129/57
[2016-07-11 12:06] VITALS: BP 112/69
--- NOTE | 2016-07-11 12:11 | SOCIAL WORKER PROG NOTE PSYCH ---
Social Work Progress Note Progress Note Patient had family meeting today with his father, Fercho. Patient presented very confused, disorganized, and irritable during this meeting. Patient was unable to cooperate appropriately and had difficulty completing logical sentences. Patients father expressed concerns about patient returning home and not following through with medication. Patients father and his are both diagnosed with cancer and are currently feeling very overwhelmed with their own medical concerns. Patient became very upset hearing that he may not be able to return home and walked out of the meeting. Patient later returned to the meeting and continued to present as irritable and confused. Patients father asked that patient sign a contract with him agreeing to have VNS and attend IOP in order to return to their home. It appears that due to patients current psychotic state, he was unable to respond logically and fully understand what his father was asking of him. We attempted to discuss the benefits of injectable medication vs oral medication and patient had difficulty comprehending the benefit of this. It was decided that we will need to revisit this discussion sometime next week as patient continues to appear to have a difficult time processing information correctly currently. In the mean time, this typewriter aligner will set up VNS for patient when he returns home and patient has intake at [facility] scheduled for next Thursday , 07/15/16 @ 12:45pm.
--- NOTE | 2016-07-11 14:32 | CP SOUTH PROGRESS NOTE PSYCH ---
Psych (Inpt) Progress Note Progress Note Progress Note: I discussed this patient's progress to date, current mental status, treatment process in the context of the treatment plan, and discharge planning with staff/ team in the daily morning inpatient team meeting. I also met with the patient myself in individual session. A total of 50 minutes was spent with the patient with more than 50% spent in counseling and/or coordination of care. OBJECTIVE: Current Medications Sig/Miranda Start time Last Medication Dose Route Stop Time Status Admin Acetaminophen 650 MG Q6P PRN 07/07 1600 AC 07/10 PO 0158 Al Hydroxide/Mg 30 ML Q4-6 PRN PRN 07/07 1600 AC Hydroxide PO Diazepam 5 MG BID 07/07 2200 AC 07/11 PO 0746 Diphenhydramine HCl 25 MG AT BEDTIME PRN 07/10 0830 AC 07/10 PO 2333 Gabapentin 300 MG Q6P PRN 07/07 1600 AC PO Magnesium Hydroxide 30 ML AT BEDTIME PRN 07/07 1600 AC 07/08 PO 2004 Nicotine 2 MG Q2P PRN 07/07 1600 AC PO Olanzapine 2.5 MG ONCE ONE 07/10 1415 DC 07/10 PO 07/10 1416 1403 Olanzapine 10 MG 0800,2200 07/09 2200 AC 07/11 PO 0746 Vital Signs Date Time Temp Pulse Resp B/P Pulse O2 O2 Flow FiO2 Ox Delivery Rate 07/11 1206 74 112/69 07/11 0803 95.7 71 129/57 07/10 2011 97.2 73 130/69 07/10 1618 67 107/59 ASSESSMENT: The patient was seen today during a family meeting along with myself , social services analyst Ileana, the patient and his father. During this meeting, the patient was angry, disrespectful to his father, and dismissive of his parents problems which include his mother suffering from bladder cancer, and his father having metastatic prostate cancer. The patient continued to display disorganized and narcissistic thoughts. We discussed introducing long-acting injectable medications, which the patient irritably declined. Although the father stated the patient has a long history of nonadherence to medications, patient states that he feels he is doing better since taking olanzapine, and agrees to continue taking olanzapine by mouth. Father stated the patient began to display psychotic symptoms at around age 18, was diagnosed with schizophrenia at that time. He has a history of non- compliance to medications. We discussed discharge planning with the patient and his father. Father states that he will only be able to have his son return home if the patient's behavior improves considerably. Father stated that he was hopeful the medications would help. Patient is aware that his father may not permit him to return home, and the patient may need to look for a homeless custodial. Yesterday we asked the patient to start exploring other options for housing, which he has not yet begun. It appears that the patient does not believe that his father will exclude him from home, although the patient's father seemed adamant on that point. Patient has agreed to accept visiting nurse to help with medication adherence, if he should return home. Denies suicidal ideation, homicidal ideation, auditory hallucinations, visual hallucinations, paranoid ideation. Patient's father states that patient has a history of hearing voices. Speech is well articulated, goal-directed, average in rate, volume and tone. The patient understands the risks/benefits/side effects of the medication and is agreeable to continue taking them. PLAN: Increase olanzapine to 15 mg twice daily for continued disorganized thoughts. Patient is aware that this dose is above PDR maximum. Continue with current management as patient is improving. Continue to provide support and encouragement.
[2016-07-11 16:15] VITALS: BP 138/68
[2016-07-11 19:46] VITALS: BP 134/89
[2016-07-12 07:51] VITALS: BP 130/80
--- NOTE | 2016-07-12 11:37 | CP SOUTH PROGRESS NOTE PSYCH ---
Psych (Inpt) Progress Note Progress Note Include the following elements, when applicable: Involvement in the active treatment of the patient with behavioral observations of the patient and the patient's response to the treatment. Review of the ongoing treatment process in the context of the treatment plan. Indication of how multi-disciplinary staff members are carrying out the treatment plan. Plans for future interventions and recommendations for revision of the treatment plan. Liaison with other physicians/providers. Progress Note: Notes reviewed, d/w nursing staff. Interviewed patient this morning. Fercho was pleasant but quite disorganized, tangential, difficult to follow thought content revolving around medications and undiscernable somatic illnesses. However, he denied any current needs or thoughts of harming himself or others. Vitals and labs reviewed and wnl. MSE: Mildly disheveled CM sitting in bed. Fair eye contact. No abn movements noted. Speech was copious but interruptable, monotonous. Mood "alright". Affect was odd, blunted, non-congruent. TP was tangential. TC seemingly of delusional nature. Denies SI/HI/AVH. Cognition appeared grossly intact. I/J were poor. A/P: Remains psychotic though does not evidence current safety concerns. Continue plan as per primary team.
[2016-07-12 12:11] VITALS: BP 113/70
[2016-07-12 15:55] VITALS: BP 124/73
[2016-07-12 19:26] VITALS: BP 128/70
[2016-07-13 07:31] VITALS: BP 121/68
[2016-07-13 12:06] VITALS: BP 138/71
--- NOTE | 2016-07-13 13:24 | CP SOUTH PROGRESS NOTE PSYCH ---
Psych (Inpt) Progress Note Progress Note Include the following elements, when applicable: Involvement in the active treatment of the patient with behavioral observations of the patient and the patient's response to the treatment. Review of the ongoing treatment process in the context of the treatment plan. Indication of how multi-disciplinary staff members are carrying out the treatment plan. Plans for future interventions and recommendations for revision of the treatment plan. Liaison with other physicians/providers. Progress Note: Notes reviewed, d/w nursing staff. Interviewed patient this morning. Fercho was pleasant, seemed increasingly organized on interview today, though remains somatically focused. Says his mood is "okay ", denies SI or HI. Vitals and labs reviewed and wnl. MSE: Mildly disheveled CM sitting in bed. Fair eye contact. No abn movements noted. Speech was monotonous. Mood "alright". Affect was odd, blunted, non- congruent. TP was tangential though more organized today compared to yesterday. TC seemingly of delusional somatic nature. Denies SI/HI/AVH. Cognition appeared grossly intact. I/J were poor. A/P: Remains psychotic though appears more organized today compared to yesterday. Continue plan as per primary team.
[2016-07-13 15:45] VITALS: BP 121/73
[2016-07-13 19:38] VITALS: BP 127/70
[2016-07-14 08:02] VITALS: BP 129/70
[2016-07-14] MEDS ORDERED: OLANZAPINE15 M1 PO (11:42)
[2016-07-14] MEDS ORDERED: NICORELIEF2 MG PO (11:42)
[2016-07-14 12:02] VITALS: BP 124/70
--- NOTE | 2016-07-14 12:02 | SOCIAL WORKER PROG NOTE PSYCH ---
Social Work Progress Note Progress Note Had lengthy talk with patient's father, who was reasonable, and concerned at the same time. Patient is going to be d/c tomorrow per plan, and he CAN return home, but father is very concerned that his behavior will regress. Still, he said..."well this is where he came from ". Father states that he would like patient to sign a promise of "good leela" that he would take medications as prescribed. And that he would redrain from making loud noises at night as his (patients mother) has worsened and her cancer is sausing her more problems. Patient's father has protate cancer, and has been taking Lupron and there is cause for optimism, at least some. Patient is scheduled for discharge tomorrow at 12:45 p.m. for intake on . He is not eligible for [facility] so dad would have to transport. Patient said he was doing well on the medication, and feels that it is helping. He is willing to commit to taking the meds. He is not suicidal. He is agreeable- -although less than enthusiastic---about IOP, but in agreement with plan Called [facility] and they will schedule visits after they get W [facility].
--- NOTE | 2016-07-14 14:06 | CP SOUTH PROGRESS NOTE PSYCH ---
Psych (Inpt) Progress Note Progress Note Progress Note: I discussed this patient's progress to date, current mental status, treatment process in the context of the treatment plan, and discharge planning with staff/ team in the daily morning inpatient team meeting. I also met with the patient myself in individual session. A total of 25 minutes was spent with the patient with more than 50% spent in counseling and/or coordination of care. SUBJECTIVE: "The med is uplifting, it feels like I'm more focused, a little more calm." OBJECTIVE: Current Medications Sig/Miranda Start time Last Medication Dose Route Stop Time Status Admin Acetaminophen 650 MG Q6P PRN 07/07 1600 AC 07/10 PO 0158 Al Hydroxide/Mg 30 ML .STK-MED ONE 07/13 1938 DC Hydroxide PO 07/13 1939 Al Hydroxide/Mg 30 ML .STK-MED ONE 07/13 1532 DC Hydroxide PO 07/13 1533 Al Hydroxide/Mg 30 ML Q4-6 PRN PRN 07/07 1600 AC 07/13 Hydroxide PO 1943 Diazepam 5 MG BID 07/07 2200 AC 07/14 PO 0845 Diphenhydramine HCl 25 MG .STK-MED ONE 07/13 2330 DC PO 07/13 2331 Diphenhydramine HCl 25 MG AT BEDTIME PRN 07/10 0830 AC 07/13 PO 2335 Gabapentin 300 MG Q6P PRN 07/07 1600 AC PO Ibuprofen 200 MG Q4P PRN 07/14 0815 AC PO Magnesium Hydroxide 30 ML AT BEDTIME PRN 07/07 1600 AC 07/11 PO 2038 Nicotine 2 MG Q2P PRN 07/07 1600 AC 07/12 PO 1008 Olanzapine 15 MG 0800,2200 07/11 2200 AC 07/14 PO 0845 Sodium Chloride 2 SPRAY Q4P PRN 07/13 1330 AC DELPHINE Vital Signs Date Time Temp Pulse Resp B/P Pulse O2 O2 Flow FiO2 Ox Delivery Rate 07/14 1202 84 124/70 07/14 0802 96.8 78 129/70 07/13 1938 97.6 86 127/70 07/13 1545 86 121/73 ASSESSMENT: Patient reports tolerating olanzapine well, to good effect. Offers no complaints today. States he feels he will be ready for discharge tomorrow. Agrees to attend [facility]. licensing worker Arvin, spoke with patient's father today, who agrees to have the patient return home. Patient agrees to continue taking medications at home, and continue in treatment, which is the father's stipulation. Patient appeared calm during our conversation today. He did not speak at length , however in our conversation he appeared to exhibit logical and organized thoughts today. Depression:0/10; Anxiety:0/10 (with 10 the worst.) Denies suicidal ideation, homicidal ideation, auditory hallucinations, visual hallucinations, paranoid ideation. Speech is well articulated, goal-directed, average in rate, volume and tone. The patient understands the risks/benefits/side effects of the medication and is agreeable to continue taking them. PLAN: Anticipate discharge tomorrow. IOP intake scheduled for 12:45 PM. Afterwards will return to his parents home. licensing worker is arranging for a visiting nurse to help with medication adherence. Continue with current management as patient is improving. Continue to provide support and encouragement.
[2016-07-14 15:58] VITALS: BP 127/71
[2016-07-14 19:48] VITALS: BP 132/77
[2016-07-15 07:54] VITALS: BP 115/63
[2016-07-15 12:30] VITALS: BP 138/68
--- NOTE | 2016-07-15 15:22 | CP SOUTH PROGRESS NOTE PSYCH ---
Psych (Inpt) Progress Note Progress Note Progress Note: I discussed this patient's progress to date, current mental status, treatment process in the context of the treatment plan, and discharge planning with staff/ team in the daily morning inpatient team meeting. I also met with the patient myself in individual session. A total of 30 minutes was spent with the patient with more than 50% spent in counseling and/or coordination of care. SUBJECTIVE: "I'm having nerve pain in the back of my head." OBJECTIVE: Current Medications Sig/Miranda Start time Last Medication Dose Route Stop Time Status Admin Acetaminophen 650 MG Q6P PRN 07/07 1600 AC 07/10 PO 0158 Al Hydroxide/Mg 30 ML .STK-MED ONE 07/14 1845 DC Hydroxide PO 07/14 1846 Al Hydroxide/Mg 30 ML Q4-6 PRN PRN 07/07 1600 AC 07/14 Hydroxide PO 1850 Diazepam 5 MG BID 07/07 2200 AC 07/15 PO 0801 Diphenhydramine HCl 25 MG .STK-MED ONE 07/14 2159 DC PO 07/14 2200 Diphenhydramine HCl 25 MG AT BEDTIME PRN 07/10 0830 AC 07/14 PO 2204 Gabapentin 300 MG Q6P PRN 07/07 1600 AC PO Ibuprofen 200 MG Q4P PRN 07/14 0815 AC 07/15 PO 1044 Magnesium Hydroxide 30 ML AT BEDTIME PRN 07/07 1600 AC 07/11 PO 2038 Nicotine 2 MG Q2P PRN 07/07 1600 AC 07/12 PO 1008 Olanzapine 15 MG 0800,2200 07/11 2200 AC 07/15 PO 0759 Sodium Chloride 2 SPRAY Q4P PRN 07/13 1330 AC DELPHINE Vital Signs Date Time Temp Pulse Resp B/P Pulse O2 O2 Flow FiO2 Ox Delivery Rate 07/15 1230 88 138/68 07/15 0754 96.1 83 115/63 07/14 1948 96.3 70 132/77 07/14 1558 82 127/71 ASSESSMENT: I met the patient twice today, once in individual session, and then again in a family meeting with his father, and high school social science teacher Arvin. Patient reports he feels safe and ready for discharge. States that he would like to get "back on track." That he will be able to "control myself" at home. States he will continue to take medications as prescribed, and attend IOP. During the family meeting, the father asked the patient to sign a "residency agreement", attesting that the patient will take his medications, behave appropriately, and attend IOP. Patient signed the agreement. The father agrees to have the patient return home, and states that he will drive the patient back and forth to IOP. The patient and his father appear to have a strained but working relationship. Depression:0/10; Anxiety:0/10 (with 10 the worst.) Denies suicidal ideation, homicidal ideation, auditory hallucinations, visual hallucinations, paranoid ideation. Speech is well articulated, goal-directed, average in rate, volume and tone. Cooperative. Alert and oriented 3. The patient understands the risks/benefits/side effects of the medication and is agreeable to continue taking them. PLAN: Discharged today. Patient will return to live in the family home. IOP intake tomorrow. Continue with current management as patient is improving. Continue to provide support and encouragement.
--- NOTE | 2016-07-15 15:30 | DISCHARGE SUMMARY REPORT-PSYCH ---
Visit Information Visit Dates/Diagnosis' Admission Date: 07/07/16 Discharge Date: 07/15/16 Reason for Admission: Patient presented to the emergency department complaining of head and neck pain. Upon evaluation ER staff reported that he was exhibiting "symptoms of psychosis." Psy Discharge Primary Diag: Schizophrenia Psy Discharge Secondary Diag: N/A. Hospital Course Significant Lab Findings: Lab TSH &T3 &Free T4 Intrp 1.470 uIU/mL 07/07/16 0908 U Benzodiazepines Scrn > 800 NG/ML H 07/07/16 1041 Course Complications: None Consultations: Patient was seen for admission history and physical by Dr. Pak. Please refer to his note for additional information. Allergies: Coded Allergies: risperidone (From RISPERDAL) (Intermediate, LOCKED JAW AND TIGHT NECK 07/07/16) Hospital Course/TX Response: The patient was monitored on the unit for safety, irritability and disorganized thoughts. He participated in multimodal treatments on the unit. He was continued on Valium as per outpatient medications, and was started on Zyprexa which was titrated to a dose of 15 mg twice daily. Family meetings were held twice with his father. Today, the day of discharge, he reports he feels safe and ready for discharge. States that he would like to get "back on track." That he will be able to "control myself" at home. States he will continue to take medications as prescribed, and attend IOP. During today's family meeting, the father asked the patient to sign a "residency agreement", attesting that the patient will take his medications, behave appropriately, and attend IOP. Patient signed the agreement. The father agrees to have the patient return home, and states that he will drive the patient back and forth to IOP. The patient and his father appear to have a strained but working relationship. Depression:0/10; Anxiety:0/10 (with 10 the worst.) Denies suicidal ideation, homicidal ideation, auditory hallucinations, visual hallucinations, paranoid ideation. Speech is well articulated, at times goal-directed and at times tangetial, average in rate, volume and tone. Poor insight. Cooperative. Alert and oriented 3. The patient understands the risks/benefits/side effects of the medication and is agreeable to continue taking them. Patient reports tolerating his medications well, without complaint. States he feels safe and ready for discharge. Discharge HBIPS - Tobacco Use Treatment Offered Post DC Medications Offered: Script Given-See Med List Post DC Tobacco Treatment Plan: [facility] Program Appt Date: 07/16/16 Program Appt Time: 1600 - EtOH/Drug Use D/O Treatment Offered Post DC Medications Offered: Ref Med EtOH/Drug Use D/O Post DC EtOH/SubAbuse TX Plan: [facility] SubAbuse/Dual IOP Program Appt Date: 07/16/16 Program Appt Time: 1245 Metabolic Screening - Screen if on a Neuroleptic Medication - Metabolic screening should include: - Blood Pressure, BMI, Glucose or Hgb A1c, & a - Lipid profile from within the past 365 days. Metabolic Screening () Not Applicable, patient not on a neuroleptic. OR ([x]) Patient on a neuroleptic(s) . Enter below results for Glucose or Hemoglobin A1C, and lipid panel if obtained during the last 365 days. BMI: 24.400 Blood Pressure: 138/68 Laboratory Results (If applicable): Lab Cholesterol 158 MG/DL 07/09/16 0600 Cholesterol/HDL Ratio 4 % 07/09/16 0600 HDL Cholesterol 41 mg/dL 07/09/16 0600 Hemoglobin A1c 5.2 07/09/16 0600 LDL Cholesterol, Calc 92 mg/dL 07/09/16 0600 Triglycerides 129 mg/dL 07/09/16 0600 Discharge Instructions General Discharge Information Discharge Medications: Discharge Medications- (Dose, route, freq, indication): HOME MEDICATION LIST START taking these NEW Home Medications: Nicotine Dose: ORAL, EVERY 2 HOURS Qty: 30 Call-In to ([facility]) 2 MG 2 Milligram NEEDED as needed for Refills: 0 Pharm 1 GUM nicotine craving Olanzapine Dose: ORAL, 0800,2200 for Qty: 28 Call-In to (Olanzapine) 15 MG 15 Milligram Clear thoughts Refills: 0 Pharm 1 TABLET CONTINUE taking these Home Medications: Diazepam (Diazepam) 10 Dose: ORAL, DAILY for ANXIETY MG TABLET 1 Tablet STOP taking these DISCONTINUED Home Medications: Bupropion HCl (Bupropion HCl) Dose: ORAL, THREE TIMES DAILY for 75 MG TABLET 1 Tablet MENTAL HEALTH Reason Stopped: Changed to different med 1: [facility] [place] [address], [address] [place] [address] [phone] [facility] [address], [place] [phone] Multiple Neuroleptics: (x]) Not Applicable OR Document below three failed attempts at monotherapy, or a plan to taper to monotherapy, or augmentation of Clozapine. () Patient's Diet: Regular Patient's Activity: No restrictions DC Disposition: Patient is returning to his parents home. Recommendations: Attend [facility]. Take medications as prescribed. Referred To: Provider Referral Service Date: 07/16/16 Referred To: [[facility]] Notes: Gely Hodges [place], [place] [phone] Intake appointment 07/16/2016 at 12:45pm. Copies To: Intensive Outpt Psychiatry
--- NOTE | 2016-07-15 17:32 | SOCIAL WORKER PROG NOTE PSYCH ---
Social Work Progress Note Progress Note s)Lengthy meeting with patient and his father. Father agreed to take patient home and to transport him to [facility] Patient was surly towards father, and I asked him to tone it down so that they could co-exist, as home was by far the best living situation that was available. All patient was being asked was to take medication, and be civil Patient d/c and has intake appointment at [facility] tomorrow at 1248
--- NOTE | 2016-07-16 11:25 | SOCIAL WORKER PROG NOTE PSYCH ---
Social Work Progress Note Progress Note Informed by Mónica Ceballos LCSW today to complete and Fax a transfer summary to [facility]. This was completed and faxed 07/16/16.
== END 2016-07-15 15:58 | DRG 885 ==
LOC: ENRESERVTM → ENRESERVDT → ERH 08:07 → ERHI 16:16 → CP SOUTH 16:16
PROVIDERS: Emergency Medicine; Nurse Practitioner Psychiatric/Mental Health; ADMIT Psychiatry & Neurology Psychiatry
DX: F20.9 Schizophrenia, unspecified (principal)
CPT/HCPCS: 36415; 80307; 81003; 93005; 93010; J1885

== ENCOUNTER 2016-08-02 20:36 | Emergency (ER) | payer OTHER, MEDICARE ==
[~2016-08-02] VITALS: Ht 185.4 cm; Wt 88.5 kg
[~2016-08-02 20:36] MED LIST: BUPROPION HCL75 M1 PO; DIAZEPAM10 M1 PO; NICORELIEF2 MG PO; OLANZAPINE15 M1 PO
--- NOTE | 2016-08-02 20:45 | ED PSYCHIATRIC COMPLAINT ---
See Addendum History of Present Illness General Chief Complaint: Psychiatric Related Complaint Stated Complaint: BIBA FOR PSYCH/ALLERGIC REACTION Source: patient Exam Limitations: clinical condition Vital Signs & Intake/Output Vital Signs & Intake/Output Vital Signs Date Time Temp Pulse Resp B/P Pulse O2 O2 Flow FiO2 Ox Delivery Rate 08/03 0644 98.3 79 18 156/89 95 Room Air 08/027 97.6 88 18 136/69 98 Room Air ED Intake and Output 08/03 0000 08/02 1200 Intake Total Output Total Balance Patient 195 lb Weight Allergies Coded Allergies: risperidone (From RISPERDAL) (Intermediate, LOCKED JAW AND TIGHT NECK 07/07/16) Reconcile Medications Diazepam 10 MG TABLET 1 TAB PO DAILY ANXIETY (Reported) Nicotine (Nicorelief) 2 MG GUM 2 MG PO Q2P PRN nicotine craving Olanzapine 15 MG TABLET 15 MG PO 0800,2200 Clear thoughts Triage Nurses Notes Reviewed? yes Onset: Gradual Duration: hour(s): Timing: single episode today Severity: mild, moderate Associated Symptoms: increased anxiety HPI: 35-year-old gentleman history of schizophrenia presents with, "not feeling right ," after taking his psychiatric medication. He notes that he felt, "out of it." He took Benadryl. This did not change his symptoms. He denies paranoia, nausea vomiting diarrhea, SI, HI. He notes that, "I see things," but he does not elaborate. (HERBER REDMOND,MINGO Wagner) Past History Travel History Traveled to [place] past 21 day No Medical History Any Pertinent Medical History? 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 No (HERBER REDMOND,MINGO Wagner) Review of Systems Review of Systems Constitutional: Reports: no symptoms. EENTM: Reports: no symptoms. Respiratory: Reports: no symptoms. Cardiovascular: Reports: no symptoms. GI: Reports: no symptoms. Genitourinary: Reports: no symptoms. Musculoskeletal: Reports: no symptoms. Skin: Reports: no symptoms. Neurological/Psychological: Reports: no symptoms. Hematologic/Endocrine: Reports: no symptoms. Immunologic/Allergic: Reports: no symptoms. All Other Systems: Reviewed and Negative (HERBER REDMOND,MINGO Wagner) Physical Exam Physical Exam General Appearance: well developed/nourished, mild distress Head: atraumatic Eyes: Bilateral: PERRL, EOMI. Ears, Nose, Throat: normal pharynx, normal ENT inspection, hearing grossly normal Neck: normal inspection, supple Respiratory: normal breath sounds Cardiovascular: regular rate/rhythm Gastrointestinal: soft, non-tender Extremities: normal range of motion Neurological/Psychiatric: no motor/sensory deficits, awake, flat, oriented x 3 Appearance/Memory/Insight: appropriate appearance, appropriate insight, denies illness Behavoir/Eye Contact/Speech: avoids eye contact, belligerent, cooperative, uncooperative Thoughts/Hallucinations: normal thought pattern, no apparent hallucination, auditory hallucinations Skin: intact, normal color, warm/dry SAD PERSONS Done? patient not suicidal (HERBER REDMOND,MINGO Wagner) Progress Differential Diagnosis: drug intoxication, electrolyte abnormality, medication side effect vs schizophrenia vs other. Plan of Care: Orders Procedure Date/time Status Regular Diet 08/03 B Active Continuous Observation Monitor 08/02 2045 Active URINE DRUG SCREEN FOR ER ONLY 08/02 2045 Complete ETHANOL 08/02 2045 Complete COMPREHENSIVE METABOLIC PANEL 08/02 2045 Complete CBC WITHOUT DIFFERENTIAL 08/02 2045 Complete ED CRISIS PSYCH CONSULT 08/02 2045 Active Laboratory Tests 08/02/160: Urine Opiates Screen < 100.00, Methadone Screen < 40, Barbiturate Screen < 60, Ur Phencyclidine Scrn < 6.00, Amphetamines Screen < 100, U Benzodiazepines Scrn > 800 H, Urine Cocaine Screen < 50, Urine Cannabis Screen < 5.00 08/02/162110: Anion Gap 11, Estimated GFR > 60, BUN/Creatinine Ratio 21.0, Glucose 94, Calcium 9.1, Total Bilirubin 0.4, AST 61 H, ALT 65, Alkaline Phosphatase 67, Total Protein 6.8, Albumin 4.3, Globulin 2.5, Albumin/Globulin Ratio 1.7, CBC w Diff NO MAN DIFF REQ, RBC 4.80, MCV 88.0, MCH 29.6, RDW 14.3, MPV 9.5, Gran % 64.9, Lymphocytes % 22.9, Monocytes % 9.7 H, Eosinophils % 2.2, Basophils % 0.3, Absolute Granulocytes 5.0, Absolute Lymphocytes 1.8, Absolute Monocytes 0.8 H, Absolute Eosinophils 0.2, Absolute Basophils 0, PUBS MCHC 33.7, Serum Alcohol < 10.0 7:20 AM PATIENT SIGNED OUT TO ME BY DR CRAVEN. PENDING CRISIS EVALUATION. (ANDRIA SUNSHINE MD) Hand-Off Endorsed To: ANDRIA SUNSHINE MD Endorsed Time: 0700 Pending: consult (HERBER REDMOND,MINGO Wagner) Departure Departure Disposition: HOME OR SELF CARE Condition: Stable Clinical Impression Primary Impression: Schizophrenia Referrals: SANJANA REDMOND,ANGEL LUIS Uribe (PCP/Family) Departure Forms: Customer Survey General Discharge Information Comments pt stable in ED and will be evaluated by psyche team this AM... pt signed out to dr. sunshine. (HERBER REDMOND,MINGO Wagner)
[2016-08-02 21:31] LABS: ABSOLUTE BASOPHIL COUNT 0 /CUMM (0.0-0.2); ABSOLUTE EOSINOPHIL COUNT 0.2 /CUMM (0.0-0.7); ABSOLUTE LYMPH COUNT 1.8 /CUMM (1.2-3.4); ABSOLUTE MONOCYTE COUNT 0.8 /CUMM (0.10-0.60); BASOPHIL % 0.3 % (0.0-2.0); EOSINOPHIL % 2.2 % (0-5); GRANULOCYTE % 64.9 % (42.2-75.2); HEMATOCRIT 42.2 % (42-52); MEAN CORPUSCULAR HGB 29.6 PG (27.0-31.0); MEAN CORPUSCULAR HGB CONC 33.7 G/DL (33.0-37.0); MEAN PLATELET VOLUME 9.5 FL (7.4-10.4); PLATELET COUNT 156 /CUMM (130-400); RBC DISTRIBUTION WIDTH 14.3 % (11.5-14.5); WHITE BLOOD CELL COUNT 7.7 /CUMM (4.8-10.8)
[2016-08-03 09:43] VITALS: BP 126/63
--- NOTE | 2016-08-03 10:28 | ED PSYCH CRISIS CONSULTATION ---
Crisis Consult Basic Assessment Date of Consult: 08/03/16 Responsible Person/Accompanied By: self, father Insurance Authorization: Insurance #1: Insurance name: MEDICARE A Phone number: Policy number: [id number] Group number: Authorization number: ED Provider: Patient's ED Provider: HERBER REDMOND,MINGO Wagner Primary Care Physician: Patient's PCP: SANJANA REDMOND,ANGEL LUIS Uribe PCP's Current Psychiatrist: Gomes Chief Complaint: Psychiatric Related Complaint Patient's Quote: "I was having pain and could not focus my eyes." Present Illness: The pt is a 35yo single male BIBA due to his concerns he was having a reaction to his psychiatric medication. The pt reports he took his Zyprexa and Valium yesterday and began having pain in his neck and the back of his head. The pt stated his eyes started rolling up and he was having trouble focusing his vision so he called 911. During this assessment the pt presents alert, oriented, calm, cooperative and pleasant. The pt made appropriate eye contact and his speech was goal directed. The pt reports the pain that brought him to the ED is gone but he can feel a "floating sensation" in the back of his head on the right side. The pt has a long history of schizophrenia. The pt denies SI, HI, AH, VH and paranoia. The pt denies any history of SI. The pt denies any problems with sleep and appetite. The pt reports taking his Zyprexa and Valium as prescribed, the pt stated he has Congentin at home but has not started it yet. The pts toxicology screen is positive for benzodiazepines. The pt denies drug use, the pt drank an unknown quantity of Vodka at home 2-3 days ago. The pt reports he was on methadone from [id number] for Opiate dependence. The pt has a history of multiple psychiatric hospitalizations including admission on [facility] 07/07/16 through 07/15/16. The pt was admitted to [facility] due to psychosis and discharged to [facility]. The pt last attended [facility] on 07/31 and his prescribed medications are Zyprexa, Valium and Cogentin. The pt is not working and lives with his supportive mother and father. Crisis spoke by phone with the pts father ([phone]) who stated the parents were not home when the pt called 911. Father reports the pt is "doing well" and had a "tremendous turnaround" since his admission to [facility]. The father reports the pt is more engaged compared to the previous year the pt was unmedicated. Father reports the pt's thoughts are better organized. Father stated he supports the pt attending IOP and taking his medication. Father stated he counted the pt's pills and believes the pt is taking his medication consistently. Father reported the pt has improved conversation with others and no verbal outbursts that were his baseline behavior. Father reports that since discharge he has not witnessed any pt behavior suggestive of psychosis. Father stated that 2 or 3 days ago he found an empty bottly of vodka at home. Father reports the bottle was already open and he is not sure how much the pt drank. Father and mother are both in treatment for cancer. Father stated the pt's 31yo brother from an accidental overdose September 2015. Father stated he will support IOP and the pt taking his medication. Pt's presentation discussed with Dr. Jean-Baptiste, plan is for discharge from the ED to continue in IOP. Pt and his father are in agreement with this plan. Pt stated he will attend IOP on 08/04/16. Patient's Address: [address] [place] [address] Other Phone Number: Who Do You Live With? Father Family/Informants Interviewed: father Allergies - Coded Allergies: risperidone (From RISPERDAL) (Intermediate, LOCKED JAW AND TIGHT NECK 07/07/16) Current Medications - Scheduled Medications Diazepam 10 MG TABLET 1 TAB PO DAILY ANXIETY #30 (Reported) Entered as Reported by GABRIELLA GR on 07/07/16 1230 Last Taken: At an unknown date and time Olanzapine 15 MG TABLET 15 MG PO 0800,2200 Clear thoughts #28 TAB Prescribed by LALO DIAS APRN on 07/15/16 Last Taken: At an unknown date and time Scheduled PRN Medications Nicotine (Nicorelief) 2 MG GUM 2 MG PO Q2P PRN nicotine craving #30 GUM Prescribed by LALO DIAS APRN on 07/15/16 Last Taken: At an unknown date and time Laboratory Results: Laboratory Tests 08/02/16 2130: Urine Opiates Screen < 100.00, Methadone Screen < 40, Barbiturate Screen < 60, Ur Phencyclidine Scrn < 6.00, Amphetamines Screen < 100, U Benzodiazepines Scrn > 800 H, Urine Cocaine Screen < 50, Urine Cannabis Screen < 5.00 08/02/16 2111: Anion Gap 11, Estimated GFR > 60, BUN/Creatinine Ratio 21.0, Glucose 94, Calcium 9.1, Total Bilirubin 0.4, AST 61 H, ALT 65, Alkaline Phosphatase 67, Total Protein 6.8, Albumin 4.3, Globulin 2.5, Albumin/Globulin Ratio 1.7, CBC w Diff NO MAN DIFF REQ, RBC 4.80, MCV 88.0, MCH 29.6, RDW 14.3, MPV 9.5, Gran % 64.9, Lymphocytes % 22.9, Monocytes % 9.7 H, Eosinophils % 2.2, Basophils % 0.3, Absolute Granulocytes 5.0, Absolute Lymphocytes 1.8, Absolute Monocytes 0.8 H, Absolute Eosinophils 0.2, Absolute Basophils 0, PUBS MCHC 33.7, Serum Alcohol < 10.0 Past History Past Medical History Neurological: NONE EENT: NONE Cardiovascular: NONE Respiratory: NONE Gastrointestinal: NONE Hepatic: NONE Renal: NONE Musculoskeletal: NONE Psychiatric: schizophrenia Endocrine: NONE Blood Disorders: NONE Cancer(s): 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 [facility], other unknown providers. Reason for Treatment Schizophrenia Dates of Treatment long hx Response to Treatment inconsistent Diagnosis by History: schizoaffective Substance Use/Abuse History Drug Use/Abuse Substances Used/Abused Yes Substance Used/Abused Non-Prescribed Opiates First Use pt unsure Last Used pt reports 2006 How much used/taken pt unable to quantify How often daily (when using) For how long pt reports mulitple years Route of use oral Substance Abuse Treatment Substance Abuse Treatment Past Substance Abuse [place] Yes Outpatient Treatment Yes Location of Treatment pt unable to identify providers Reason for Treatment Opiate dependence Dates of Treatment long hx Response to Treatment sustained remission Current Mental Status Mental Status Orientation: Person, Place, Situation Affect: WNL Speech: WNL Neuro-vegetative: WNL Appearance Appearance- Dress/Hygiene: appropriate Behaviors Thought Process: WNL Thought Content: WNL Memory: WNL Insight: Fair SI/HI Risk Assessment Past Suicidal Ideation/Attempts No Current Suicidal Ideation/Att No Past Homicidal Ideation/Att: No Current Homicidal Ideation/Attempts No Degree of Intent: None Danger To: Others (n/a) Gravely Disabled: Inability (n/a) Risk Factors: chronic/serious med cond., SA/MH hospitalized, substance abuse, male Lethality Ratin (mild) PTSD Checklist PTSD Done? patient declined ED Management Sitter: Yes Restraints: No DSM5/PS Stressors/Medical Prob Diagnosis' (DSM 5, Stressors, Medical): F20.9 Schizophrenia F11.20 Opioid Use Disorder, in sustained remission, previously on methadone maintenance Current GAF: 40 Departure Disposition Psych Medical Clearance Date: 08/03/16 Medically Cleared at: 0800 Time Started: 0800 Time Ended: 0835 Psychiatrist Consulted: Dr. Jean-Baptiste Date Disposition Established: 08/03/16 Time Disposition Established: 929 Plan for Disposition - Modality: IOP Facility: [facility] Follow-up Appt Date: 08/04/16 Rationale for Disposition: Pt is not in need of hospitalization. Referrals SANJANA REDMOND,ANGEL LUIS Uribe (PCP/Family)
== END 2016-08-03 09:55 ==
LOC: ERH 20:36
PROVIDERS: Pediatrics
DX: F20.9 Schizophrenia, unspecified (principal)
CPT/HCPCS: 80307; G0463; G0480

== ENCOUNTER 2016-08-03 10:37 | Emergency (ER) | payer OTHER, MEDICARE ==
[~2016-08-03] VITALS: Ht 185.4 cm; Wt 88.5 kg
[2016-08-03 10:40] VITALS: BP 131/73
--- NOTE | 2016-08-03 10:54 | ED AMS/SEIZURE/WEAK/DIZZY ---
History of Present Illness General Chief Complaint: Dizziness Stated Complaint: FOUND IN LOBBY "STUMBLING" Source: patient, old records, RAPID RESPONSE TEAM Exam Limitations: no limitations Vital Signs & Intake/Output Vital Signs & Intake/Output Vital Signs Date Time Temp Pulse Resp B/P Pulse O2 O2 Flow FiO2 Ox Delivery Rate 08/03 1041 97 Room Air 08/03 1040 96.8 72 18 131/73 97 Room Air Allergies Coded Allergies: risperidone (From RISPERDAL) (Intermediate, LOCKED JAW AND TIGHT NECK 07/07/16) Reconcile Medications Diazepam 10 MG TABLET 1 TAB PO DAILY ANXIETY (Reported) Olanzapine 15 MG TABLET 15 MG PO 0800,2200 Clear thoughts Triage Note: 35 Y/[facility]. PER RAPID RESPONSE TEAM, "HE WAS WANDERING IN THE LOBBY STUMBLING AND HIS EYES ROLLED BACK". PT ARRIVES TO ED A/O X 4, SPEAKING CLEARLY AND STATES HE DOESNT "REALLY REMEMBER .. ITS LIKE MY EYES CANT FOCUS AND THEN THEY START TO ROLL AND I CANT SEE ANYTHING". PT STATES THIS HAS HAPPENED TO HIM BEFORE. STATES "I FEEL LIKE THERES NO CIRCULATION IN MY BRAIN". PT STATES THIS IS THE SAME FEELING HE HAD ON PREVIOUS ED VISIT (D/ARLETTE THIS MORNING). FS [address] [place] AT THE BEDSIDE Triage Nurses Notes Reviewed? yes Onset: Abrupt Duration: minute(s): (FEW) Timing: single episode today Injury Environment: IN HOSPITAL LOBBY Severity: mild No Modifying Factors: none HPI: 35 year old male presents to the ER accompanied by rapid response team for appearing wobbly in the lobby. He was just discharged from the ER and was waiting for his father to pick him up. Somebody noted he looked a little shaky. Patient states he is not feeling any different than when he left. No headache. He always feels a little anxious. He states he has this chronic feeling at the back of his head. Fingerstick 86. Past History Travel History Traveled to [place] past 21 day No Medical History Any Pertinent Medical History? 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 No Review of Systems Review of Systems Constitutional: Denies: fever. EENTM: Reports: no symptoms. Respiratory: Denies: cough. Cardiovascular: Denies: chest pain. GI: Denies: abdominal pain. Genitourinary: Reports: no symptoms. Musculoskeletal: Reports: no symptoms. Skin: Reports: no symptoms. Neurological/Psychological: Reports: ataxia, headache. Hematologic/Endocrine: Denies: bruising, bleeding, polyuria, polydipsia. Immunologic/Allergic: Denies: splenectomy. All Other Systems: Reviewed and Negative Physical Exam Physical Exam General Appearance: well developed/nourished, alert, awake, anxious, mild distress Head: atraumatic, normal appearance Eyes: Bilateral: normal appearance, PERRL, pale conjunctivae. Ears, Nose, Throat: normal pharynx, hearing grossly normal Neck: normal inspection, supple, full range of motion Respiratory: normal breath sounds, chest non-tender, no respiratory distress Cardiovascular: regular rate/rhythm Peripheral Pulses: 2+ radial (R), 2+ radial (L) Gastrointestinal: normal bowel sounds, soft, non-tender Extremities: normal range of motion Neurologic/Psych: no motor/sensory deficits, awake, alert, oriented x 3 Skin: intact, normal color, warm/dry Core Measures ACS in differential dx? No CVA/TIA Diagnosis: No Severe Sepsis Present: No Septic Shock Present: No Progress Differential Diagnosis: schizophrenia Plan of Care: Father at bedside, willing to take patient home. Discussed with Arvin from crisis , still stable from psychiatric standpoint for discharge home if father feels comfortable taking him home. He has agreed to continue with his medications and follow up with his outpatient IOP appointment tomorrow. Initial ED EKG: none Departure Departure Time of Disposition: 1053 Disposition: HOME OR SELF CARE Condition: Stable Clinical Impression Primary Impression: Schizophrenia Referrals: SANJANA REDMOND,ANGEL LUIS Uribe (PCP/Family) Additional Instructions: CONTINUE YOUR REGULAR MEDICATIONS AND FOLLOW UP WITH YOUR IOP APPOINTMENT TOMORROW. Departure Forms: Customer Survey General Discharge Information
== END 2016-08-03 11:00 ==
LOC: ERH 10:37
DX: F20.9 Schizophrenia, unspecified (principal)

== ENCOUNTER 2016-08-14 14:48 | Emergency (ER) | payer OTHER, MEDICARE ==
[~2016-08-14] VITALS: Ht 182.9 cm; Wt 90.7 kg
--- NOTE | 2016-08-14 15:06 | ED GENERAL ADULT ---
See Addendum History of Present Illness General Chief Complaint: Eye Problems Stated Complaint: EYE PROBLEMS,?MED RX Source: patient, old records Exam Limitations: no limitations Vital Signs & Intake/Output Vital Signs & Intake/Output Vital Signs Date Time Temp Pulse Resp B/P Pulse O2 O2 Flow FiO2 Ox Delivery Rate 08/14 1708 96.3 79 18 134/60 97 Room Air 08/14 1504 100 Room Air 08/14 1452 96.0 97 18 149/78 96 Room Air Allergies Coded Allergies: risperidone (From RISPERDAL) (Intermediate, LOCKED JAW AND TIGHT NECK 07/07/16) Triage Note: PT BIBA FROM HOME C/O DYSTONIC REACTION? PER MEDIC PT WAS AT [facility] FOR A MEETING WITH FATHER AND ON THE WAY HOME PT STATED TO FATHER THAT HE WAS SEEING BLACK SPOTS. PER MEDIC THE COMPLAINT WAS "IM HAVING A DYSTONIC REACTION", MEDIC DENIES ANY MUSCLES TENSION OR FACIAL REACTIONS. PT ON ARRIVAL DID NOT DISPLAY ANY SYMPTOMS OF A DYSTONIC REACTION. PT HAS A FLAT AFFECT. PT WANDED AND CHANGED INTO PAPER SCRUBS. VSS. AWAITING PROVIDER EVAL Triage Nurses Notes Reviewed? yes Onset: Just prior to arrival Duration: minute(s): (15) Timing: recent history Injury Environment: home Severity: moderate Severity Numbers: 6 Modifying Factors: Improves With: other (BENDRYL). HPI: Patient is a 35-year-old male who was recently discharged from the psychiatric [facility] for psychosis. He reports that he was recently put on Zyprexa and has had intermittent headaches in his eyes roll up in his head and sometimes. He was told to take Benadryl this happens. Patient denies any nausea vomiting fevers or chills. Denies any increased anxiety and depression. He was heading home from his outpatient appointment today when symptoms started. He reports that he was seeing spots in his eyes rolled up. The father called the ambulance and is brought in for evaluation. Patient reports that he took Benadryl at onset during his meeting today and it seemed to help his symptoms. He reports that he gets anxious and nervous and then the symptoms happen. Denies any suicidal or homicidal ideation. Denies any drug use. Takes medications as prescribed. Current dizziness. He was seen and evaluated for similar symptoms the other day and reports that improved after Benadryl as well. (NASEEM GRIFFITH) Reconcile Medications Diazepam 10 MG TABLET 1 TAB PO DAILY ANXIETY (Reported) Naproxen (Naprosyn) 500 MG TABLET 1 TAB PO BID PRN PAIN Olanzapine 15 MG TABLET 15 MG PO 0800,2200 Clear thoughts (ELIZA WICK DO) Past History Travel History Traveled to [place] past 21 day No Medical History Any Pertinent Medical History? 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 No (NASEEM GRIFFITH) Review of Systems Review of Systems Constitutional: Reports: no symptoms. Comments Review of systems: See HPI, All other systems negative. Constitutional, no chills fever or weight loss HEENT: no sore throat no congestion Cardiovascular: No chest pain ,palpitation , orthopnea or ankle swelling Skin, no jaundice no rashes Respiratory: No dyspnea cough sputum or hemoptysis GI: No nausea no vomiting : No dysuria No hematuria Muscle skeletal: no back pain, no neck pain, Neurologic: No numbness no confusion and no headaches Psych: No increased stress anxiety or depression,. Heme/endocrine: No bruising no bleeding no polyuria or polydipsia Immunology: No splenectomy or history of AIDS (NASEEM GRIFFITH) Physical Exam Physical Exam General Appearance: well developed/nourished, no apparent distress, alert, awake , comfortable Comments: Well-developed well-nourished person in no acute distress HEENT: Normal EENT exam, extraocular motion intact, no nystagmus. Pupils equally round and reactive to light and accommodation. Nose is atraumatic. External auditory canal and Tympanic membranes clear. Pharynx normal. No swelling or edema. Neck: Supple, no lymphadenopathy, normal range of motion without pain or tenderness Back: Nontender, no CVA tenderness. Full range of motion Cardiovascular: Regular rate and rhythms no murmurs rubs or gallops, normal JVP Respiratory: Chest nontender. No respiratory distress.breath sounds clear to auscultation bilaterally Extremity: No edema Neuro: Alert oriented x3, motor sensory normal, cranial nerves II through XII grossly intact. Skin: No appreciable rash on exposed skin, skin is warm and dry. Psych: Flattened affect Core Measures ACS in differential dx? No CVA/TIA Diagnosis: No Severe Sepsis Present: No Septic Shock Present: No (ELOISA LIPSCOMB,NASEEM) Progress Differential Diagnoses I considered the following diagnoses in my evaluation of the patient: Medication reaction, likely abnormality, psychosis, polysubstance abuse, generalized anxiety disorder, schizophrenia Plan of Care: Orders Procedure Date/time Status URINE DRUG SCREEN FOR ER ONLY 08/14 153 Complete COMPREHENSIVE METABOLIC PANEL 08/14 153 Complete CBC WITHOUT DIFFERENTIAL 08/14 153 Complete Laboratory Tests 08/14/16 1619: Urine Opiates Screen < 100.00, Methadone Screen 42, Barbiturate Screen < 60, Ur Phencyclidine Scrn < 6.00, Amphetamines Screen < 100, U Benzodiazepines Scrn > 800 H, Urine Cocaine Screen < 50, Urine Cannabis Screen < 5.00 08/14/16 1555: Anion Gap 12, Estimated GFR > 60, BUN/Creatinine Ratio 16.0, Glucose 87, Calcium 9.5, Total Bilirubin 0.5, AST 25, ALT 48, Alkaline Phosphatase 66, Total Protein 6.9, Albumin 4.2, Globulin 2.7, Albumin/Globulin Ratio 1.6, CBC w Diff NO MAN DIFF REQ, RBC 4.98, MCV 86.7, MCH 28.9, RDW 14.4, MPV 9.1, Gran % 73.7, Lymphocytes % 16.5 L, Monocytes % 8.2, Eosinophils % 1.2, Basophils % 0.4, Absolute Granulocytes 4.8, Absolute Lymphocytes 1.1 L, Absolute Monocytes 0.5, Absolute Eosinophils 0.1, Absolute Basophils 0, PUBS MCHC 33.3 Initial ED EKG: none Comments: As patient was being discharged here for that his eyes were having a similar symptoms and requested Benadryl. Patient given IM Benadryl for symptoms and within 5 minutes his twitching eyes has resolved. Now requesting Toradol. He will follow-up with his primary care physician. Educated on continuing Benadryl use if he develops he symptoms again. I do not think this is a tardive dyskinesia, patient not having any other symptoms. This may be provoked by anxiety. Further evaluation necessary, patient will follow up outpatient OR RETURN FOR WORSENING SYMPTOMS. Unfortunately headaches can be a side effect of Zyprexa as well as tardive dyskinesia. (NASEEM GRIFFITH) Departure Departure Time of Disposition: 1706 Disposition: HOME OR SELF CARE Condition: Stable Clinical Impression Primary Impression: Adverse drug reaction Referrals: SANJANA REDMOND,ANGEL LUIS Uribe (PCP/Family) Additional Instructions: Continue on medications as prescribed. Make sure you mention this when you go to your appointment on Thursday. Return for worsening symptoms or concerns. Sometimes it takes her body several weeks to adjust her medication. Departure Forms: Customer Survey General Discharge Information (NASEEM GRIFFITH) PA/MEDIA MONITOR Co-Sign Statement Statement: ED Attending supervision documentation- [] I saw and evaluated the patient. I have also reviewed all the pertinent lab results and diagnostic results. I agree with the findings and the plan of care as documented in the PA's/MEDIA MONITOR's documentation. [x I have reviewed the ED Record and agree with the PA's/MEDIA MONITOR's documentation. [] Additions or exceptions (if any) to the PAs/MEDIA MONITOR's note and plan are summarized below: [] (ELIZA WICK DO) Critical Care Note Critical Care Note Critical Care Time: non-applicable (NASEEM GRIFFITH)
[2016-08-14 16:07] LABS: ABSOLUTE BASOPHIL COUNT 0 /CUMM (0.0-0.2); ABSOLUTE EOSINOPHIL COUNT 0.1 /CUMM (0.0-0.7); ABSOLUTE GRANULOCYTE CT 4.8 /CUMM (1.4-6.5); ABSOLUTE LYMPH COUNT 1.1 /CUMM (1.2-3.4); ABSOLUTE MONOCYTE COUNT 0.5 /CUMM (0.10-0.60); BASOPHIL % 0.4 % (0.0-2.0); EOSINOPHIL % 1.2 % (0-5); GRANULOCYTE % 73.7 % (42.2-75.2); HEMATOCRIT 43.2 % (42-52); MEAN CORPUSCULAR HGB 28.9 PG (27.0-31.0); MEAN CORPUSCULAR HGB CONC 33.3 G/DL (33.0-37.0); MEAN CORPUSCULAR VOLUME 86.7 FL (80.0-94.0); MEAN PLATELET VOLUME 9.1 FL (7.4-10.4); PLATELET COUNT 162 /CUMM (130-400); RBC DISTRIBUTION WIDTH 14.4 % (11.5-14.5); RED BLOOD CELL CT 4.98 /CUMM (4.70-6.10); WHITE BLOOD CELL COUNT 6.5 /CUMM (4.8-10.8)
[2016-08-14 17:08] VITALS: BP 134/60
[2016-08-14] MEDS ORDERED: NAPROSYN500 M1 PO (19:47)
== END 2016-08-14 17:44 ==
LOC: ERH 14:48
PROVIDERS: Physician Assistant
DX: T43.595A Adverse effect of other antipsychotics and neuroleptics, initial encounter (principal)
CPT/HCPCS: 80307; 96372; J1200; J1885

== ENCOUNTER 2016-10-23 15:14 | Emergency (ER) | payer OTHER, MEDICARE ==
[~2016-10-23 15:14] MED LIST changes: +NAPROSYN500 M1 PO
--- NOTE | 2016-10-23 16:06 | ED GENERAL ADULT ---
History of Present Illness General Chief Complaint: Eye Problems Stated Complaint: "EYES ROLLING INTO BACK OF HEAD" X 15 MIN AGO Source: patient, family, PCP Exam Limitations: no limitations Vital Signs & Intake/Output Vital Signs & Intake/Output Vital Signs Date Time Temp Pulse Resp B/P B/P Pulse O2 O2 Flow FiO2 Mean Ox Delivery Rate 10/23 1818 96.8 90 18 136/84 94 Room Air 10/23 1521 98.1 106 20 148/90 98 Allergies Coded Allergies: risperidone (From RISPERDAL) (Intermediate, LOCKED JAW AND TIGHT NECK 07/07/16) Reconcile Medications Amino Acids (Amino Acid) 1 EACH CAPSULE 1 CAP PO DAILY SUPPLEMENT (Reported) Amitriptyline HCl 10 MG TABLET 1 TAB PO QPM MENTAL HEALTH (Reported) Benztropine Mesylate 1 MG TABLET 1 TAB PO BID PSYCH Diazepam 5 MG TABLET 1 TAB PO BID ANXIETY (Reported) Multivitamin (Multi-Day Vitamins) 1 EACH TABLET 1 TAB PO DAILY SUPPLEMENT ( Reported) Olanzapine (Zyprexa) 10 MG TABLET 1 TAB PO QAM MENTAL HEALTH (Reported) Olanzapine (Zyprexa) 15 MG TABLET 1 TAB PO QPM MENTAL HEALTH (Reported) Triage Note: PER PT EYES "STUCK" IN UPWARD POSITION I AM HAVING A DYSTONIC REACTION TO ZYPREXA. TOOK IT THIS AM PTS EYES ARE UPWARD BILATERALLY Triage Nurses Notes Reviewed? yes HPI: Patient states that whenever he takes Zyprexa his eyes rolled back into his head and they get stuck there until he takes Benadryl. His dad states that his mood is the past that he is seen in years since he has been on Zyprexa. Patient denies any suicidal or homicidal ideations. There is no nausea or vomiting. There is no shortness of breath. Past History Travel History Traveled to [place] past 21 day No Medical History Any Pertinent Medical History? 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 No Review of Systems Review of Systems Constitutional: Reports: no symptoms. EENTM: Reports: see HPI. Respiratory: Reports: no symptoms. Cardiovascular: Reports: no symptoms. GI: Reports: no symptoms. Genitourinary: Reports: no symptoms. Musculoskeletal: Reports: no symptoms. Skin: Reports: no symptoms. Neurological/Psychological: Reports: no symptoms. Hematologic/Endocrine: Reports: no symptoms. Immunologic/Allergic: Reports: no symptoms. All Other Systems: Reviewed and Negative Physical Exam Physical Exam General Appearance: well developed/nourished, alert, awake Head: atraumatic, normal appearance Eyes: Bilateral: PERRL, EOMI. Ears, Nose, Throat: normal pharynx, normal ENT inspection Neck: normal inspection, supple, full range of motion Respiratory: normal breath sounds, chest non-tender, no respiratory distress, lungs clear Cardiovascular: regular rate/rhythm, normal peripheral pulses Gastrointestinal: normal bowel sounds, soft, non-tender, no organomegaly Back: normal inspection, normal range of motion Extremities: normal inspection, normal capillary refill, normal range of motion, no edema Neurologic/Psych: no motor/sensory deficits, awake, alert, oriented x 3, normal gait, normal mood/affect Skin: intact, normal color, warm/dry Core Measures ACS in differential dx? No CVA/TIA Diagnosis: No Severe Sepsis Present: No Septic Shock Present: No Progress Differential Diagnoses I considered the following diagnoses in my evaluation of the patient: [DYSTONIC REAVTION] Plan of Care: Orders Procedure Date/time Status URINE DRUGS OF ABUSE 10/23 155 Active ETHANOL 10/23 1558 Complete COMPREHENSIVE METABOLIC PANEL 10/23 1558 Complete CBC WITHOUT DIFFERENTIAL 10/23 1558 Complete Laboratory Tests 10/23/16 1630: Anion Gap 12, Estimated GFR > 60, BUN/Creatinine Ratio 17.0, Glucose 90, Calcium 9.4, Total Bilirubin 0.6, AST 31, ALT 58, Alkaline Phosphatase 68, Total Protein 7.3, Albumin 4.6, Globulin 2.7, Albumin/Globulin Ratio 1.7, CBC w Diff NO MAN DIFF REQ, RBC 5.01, MCV 86.2, MCH 29.4, RDW 14.3, MPV 8.9, Gran % 72.3, Lymphocytes % 18.9 L, Monocytes % 7.7, Eosinophils % 0.8, Basophils % 0.3, Absolute Granulocytes 4.5, Absolute Lymphocytes 1.2, Absolute Monocytes 0.5, Absolute Eosinophils 0.1, Absolute Basophils 0, PUBS MCHC 34.1, Serum Alcohol < 10.0 Initial ED EKG: none Comments: Patient has been seen by his therapist here in the emergency department. Patient will be started on Cogentin. Patient has an IOP appointment. Departure Departure Disposition: HOME OR SELF CARE Condition: Stable Clinical Impression Primary Impression: Dystonia Referrals: SANJANA REDMOND,ANGEL LUIS Uribe (PCP/Family) Additional Instructions: Continue the Zyprexa. BEGIN Cogentin. Follow-up with Dr. BONNER appointment. Departure Forms: Customer Survey General Discharge Information Prescriptions: Current Visit Scripts Benztropine Mesylate 1 TAB PO BID #60 TAB Critical Care Note Critical Care Note Critical Care Time: non-applicable
[2016-10-23 16:43] LABS: ABSOLUTE BASOPHIL COUNT 0 /CUMM (0.0-0.2); ABSOLUTE EOSINOPHIL COUNT 0.1 /CUMM (0.0-0.7); ABSOLUTE GRANULOCYTE CT 4.5 /CUMM (1.4-6.5); ABSOLUTE LYMPH COUNT 1.2 /CUMM (1.2-3.4); ABSOLUTE MONOCYTE COUNT 0.5 /CUMM (0.10-0.60); BASOPHIL % 0.3 % (0.0-2.0); EOSINOPHIL % 0.8 % (0-5); GRANULOCYTE % 72.3 % (42.2-75.2); HEMATOCRIT 43.2 % (42-52); MEAN CORPUSCULAR HGB 29.4 PG (27.0-31.0); MEAN CORPUSCULAR HGB CONC 34.1 G/DL (33.0-37.0); MEAN CORPUSCULAR VOLUME 86.2 FL (80.0-94.0); MEAN PLATELET VOLUME 8.9 FL (7.4-10.4); PLATELET COUNT 167 /CUMM (130-400); RBC DISTRIBUTION WIDTH 14.3 % (11.5-14.5); RED BLOOD CELL CT 5.01 /CUMM (4.70-6.10); WHITE BLOOD CELL COUNT 6.2 /CUMM (4.8-10.8)
[2016-10-23] MEDS ORDERED: ZYPREXA15 M1 PO (16:48)
[2016-10-23] MEDS ORDERED: ZYPREXA10 M1 PO (16:48)
[2016-10-23] MEDS ORDERED: DIAZEPAM5 M1 PO (16:49)
[2016-10-23] MEDS ORDERED: AMITRIPTYLINE H10 M2 PO (16:49)
[2016-10-23] MEDS ORDERED: AMINO ACID1 EACH PO (16:50)
[2016-10-23] MEDS ORDERED: MULTI-DAY VITA1 EACH PO (16:50)
--- NOTE | 2016-10-23 17:29 | ED PSYCHIATRIST/APRN CONSULT ---
Psychiatrist/STOCK LIFTER ED Consult Assessment and Plan: This chief writer met with client in the ED from 4:30p-4:45p. Client seen sitting up comfortable on a hallway bed. Father at bedside. Client presents with intact extraocular muscles. There was no stiffness or cogwheeling in joints, no obvious limited range of motion in neck. No abnormal movements noted. Father and client report that client had an ~30 minute period of dystonic like eye muscle rigidity , with both eyes pulled and fixed upwards. He reports he utilized his PRN benadryl. He states he feels like he has a hard time visualizing his "right from left," but is unable to explain what he means by this further. He demonstrates knowledge of his right hand versus his left hand. Client denies AH/VH, though does report he felt he "smelled bacteria" earlier today when presumably there was no bacteria around. He expresses concern about the intermittent pressure he feels in his head and face, for which allegedly there is no medical cause. He denies suicidal or homicidal ideation, and feels safe at home. He denies paranoia. He is agreeable to remain on psychiatric medication, though expresses concern about the possible dystonia. Adverse reactions reported to risperdal, abilify, and seroquel. Father reports that on zyprexa client is "the best I have ever seen him". Oriented x4. Hospital scrubs. Mood "ok". Denies sadness and anxiety. Flat affect. Thought process goal oriented, content loose. Memory grossly intact. Impression: Possible dystonic reaction to zyprexa Plan: 1. Start Cogentin 1mg BID 2. Continue zyprexa 3. IOP Referral 10/29/16 3:30pm intake
[2016-10-23] MEDS ORDERED: BENZTROPINE MESY1 M1 PO (17:59)
[2016-10-23 18:18] VITALS: BP 136/84
== END 2016-10-23 18:18 ==
LOC: ERH 15:14
PROVIDERS: Emergency Medicine
DX: G24.9 Dystonia, unspecified (principal)
CPT/HCPCS: 80307; G0463; G0480

== ENCOUNTER 2016-12-19 15:07 | Emergency (ER) | payer OTHER, MEDICARE ==
[~2016-12-19] VITALS: Ht 185.4 cm; Wt 104.3 kg
[~2016-12-19 15:07] MED LIST changes: +AMINO ACID1 EACH PO; +AMITRIPTYLINE H10 M2 PO; +BENZTROPINE MESY1 M1 PO; +DIAZEPAM5 M1 PO; +MULTI-DAY VITA1 EACH PO; +ZYPREXA10 M1 PO; +ZYPREXA15 M1 PO
--- NOTE | 2016-12-19 15:34 | ED HEADACHE COMPLAINT ---
History of Present Illness General Chief Complaint: Headache Stated Complaint: HEADACHE Source: patient, old records Exam Limitations: no limitations Vital Signs & Intake/Output Vital Signs & Intake/Output Vital Signs Date Time Temp Pulse Resp B/P B/P Pulse O2 O2 Flow FiO2 Mean Ox Delivery Rate 12/19 1714 97.8 76 18 115/71 98 Room Air 12/19 1528 Room Air 12/19 1527 98.1 84 18 128/74 Room Air Allergies Coded Allergies: risperidone (From RISPERDAL) (Intermediate, LOCKED JAW AND TIGHT NECK 07/07/16) Reconcile Medications Amino Acids (Amino Acid) 1 EACH CAPSULE 1 CAP PO DAILY SUPPLEMENT (Reported) Amitriptyline HCl 10 MG TABLET 1 TAB PO QPM MENTAL HEALTH (Reported) Benztropine Mesylate 1 MG TABLET 1 TAB PO BID PSYCH Diazepam 5 MG TABLET 1 TAB PO BID ANXIETY (Reported) Multivitamin (Multi-Day Vitamins) 1 EACH TABLET 1 TAB PO DAILY SUPPLEMENT ( Reported) Olanzapine (Zyprexa) 10 MG TABLET 1 TAB PO QAM MENTAL HEALTH (Reported) Olanzapine (Zyprexa) 15 MG TABLET 1 TAB PO QPM MENTAL HEALTH (Reported) Triage Note: PT BIBA FROM HOME FOR C/O INCREASING HEADACHE THAT EXTENDS TO NECK. PER PT, HE STOPPED TAKING ZYPREXA APPROX 1 MONTH AGO AFTER ED VISIT FOR EYES "STUCK" UPWARDS, POSSIBLY DUE TO MEDICATION. HE REPORTS TAKING ALL OTHER MEDICATIONS. HEADACHE STARTED "A FEW DAYS AGO", AND HE HAS TAKEN VALIUM WITH LITTLE EFFECT. PER HIS REPORT, HE CAN "SEE BLOOD BEHIND" HIS EYES AND FEELS LIKE HIS BRAIN IS FILLED WITH FLUID. Triage Nurses Notes Reviewed? yes Onset: Gradual Duration: week(s): Timing: recent history Quality/Severity: sharp, stabbing Severity Numbers: 7 Head Injury Location: occipital HPI: 36-year-old male with history of chronic headache, cervical disc herniation, presents emergency department complaining of headache 1 week. Headache described fluctuating, sharp stabbing, located posterior right side with radiation toward behind right eye. Headache fluctuates from 3/10 to 7/10. Patient also complains of blurry vision in right eye with color vision changes. The patient states that when he will see his eyes upward he can see increasing fluid or blood behind his eyes and in his brain. The patient states that he was on antipsychotics, Zyprexa which caused him to have increased fluid in his brain so his dose had to be reduced. He has been worked up by his primary care doctor and a neurologist for his headaches. He has had a head MRA in 2014 which was within normal limits. His primary care doctor prescribed him amitriptyline and Valium which sometimes help his headaches however not currently. The patient's current headache is described as similar in quality, severity, and location to his previous headaches. The patient has tried taking Motrin and Tylenol without relief of his headache. The patient denies head trauma, loss of consciousness, confusion, fevers, chills, cough, gait disturbance. (RIKI TROTTER PA-C) Past History Travel History Traveled to [place] past 21 day No Medical History Any Pertinent Medical History? 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 No (RIKI TROTTER PA-C) Review of Systems Review of Systems Constitutional: Reports: no symptoms. Eyes: Reports: see HPI. Ears, Nose, Throat, Mouth: Reports: no symptoms. Respiratory: Reports: no symptoms. Cardiovascular: Reports: no symptoms. Gastrointestinal/Abdominal: Reports: no symptoms. Genitourinary: Reports: no symptoms. Musculoskeletal: Reports: no symptoms. Skin: Reports: no symptoms. Neurological/Psychological: Reports: see HPI. Hematologic/Endocrine: Reports: no symptoms. Endocrine: Reports: no symptoms. Immunologic/Allergic: Reports: no symptoms. All Other Systems: Reviewed and Negative (RIKI TROTTER PA-C) Physical Exam Physical Exam General Appearance: well developed/nourished, no apparent distress, alert, awake Head: atraumatic, normal appearance Eyes: Bilateral: normal appearance, PERRL, EOMI. Ears, Nose, Throat: normal pharynx, hearing grossly normal Neck: normal inspection, supple, full range of motion Respiratory: no respiratory distress Back: normal inspection, normal range of motion Extremities: normal inspection, normal range of motion Psychiatric: oriented x 3 Cranial Nerves: normal hearing, normal speech, PERRL Coordination/Gait: normal finger to nose Motor/Sensory: no motor/sensory deficits Skin: intact, normal color, warm/dry Core Measures Severe Sepsis Present: No Septic Shock Present: No (RIKI TROTTER PA-C) Progress Differential Diagnosis: cluster NICKERSON, encephalitis, intracranial Hem., meningitis, migraine NICKERSON, musculoskeletal pain, tension NICKERSON, temporal arteritis, TMJ syndrome Plan of Care: 3:36 - spoke with pharmacist regarding medication options given patient's current antipsychotic meds, pharmacist recommends toradol at this time rather than fioricet as possible reaction with butalbital and patient's current meds. Patient reports relief of Headache symptoms following toradol however he still feels/sees fluid behind his head. 5:04PM - The patient was discussed with Dr. Bey. Patient has had similar headaches and symptoms, he has underlying psychiatric disorder which may explain his symptoms of fluid inside his brain. Patient was given option to speak with crisis team here or follow up with psychiatrist and PCP as outpatient. Patient elects to follow up with his primary care doctor and psychiatrist next week. He was instructed to take Tylenol or Motrin as prescribed as needed for his headache. The patient is in no acute distress, his vital signs are stable, he is well-appearing. The patient will return with any worsening symptoms or concerns. The patient is in agreement with the plan of care. (RIKI TROTTER PA-C) Departure Departure Disposition: HOME OR SELF CARE Condition: Stable Clinical Impression Primary Impression: Headache Referrals: SANJANA REDMOND,ANGEL LUIS Uribe (PCP/Family) Additional Instructions: Take Tylenol or Motrin as prescribed as needed for headache. Rest discussed, follow-up with her primary care doctor next week to discuss her medications. Also follow up with your psychiatrist next week, they may wish to do further testing or adjust your medication. Return with any worsening symptoms or concerns. Departure Forms: Customer Survey General Discharge Information (RIKI TROTTER PA-C) PA/CHEMIST PHYSICAL Co-Sign Statement Statement: ED Attending supervision documentation- [] I saw and evaluated the patient. I have also reviewed all the pertinent lab results and diagnostic results. I agree with the findings and the plan of care as documented in the PA's/CHEMIST PHYSICAL's documentation. [X] I have reviewed the ED Record and agree with the PA's/CHEMIST PHYSICAL's documentation. [] Additions or exceptions (if any) to the PAs/CHEMIST PHYSICAL's note and plan are summarized below: [] (RUBÉN REDMOND,[place])
[2016-12-19 17:14] VITALS: BP 115/71
== END 2016-12-19 17:18 ==
LOC: ERH 15:07
DX: R51 Headache (principal)
CPT/HCPCS: 96372; J1885